=== PATIENT | male | born 1935 | race Caucasian/White ===

== ENCOUNTER 2017-07-23 10:53 | Observation (INO) ==
[2017-07-23] MEDS ORDERED: 0.9 % Sodium Chloride 1,000 ML IVC ONE (11:08)
[2017-07-23] MEDS ORDERED: *HR* Morphine 2 MG/ML SYRINGE IVP ONE (11:08)
[2017-07-23] MEDS ORDERED: Ondansetron 4 MG/2 ML VIAL IVP ONE (11:08)
--- NOTE | 2017-07-23 11:08 | Emergency Department Note ---
Disposition Clinical Impression: Comminuted right humeral fracture Disposition: Admitted As Inpatient Condition: Fair Time of Disposition: 13:33 General Adult HPI - General Chief complaint: ED Extremity Injury, Upper Stated complaint: R arm pain s/p fx-seen at [facility] ER last night Time Seen by Provider: 07/23/17 11:04 Source: patient, family Mode of arrival: ambulatory Limitations: no limitations Nursing Notes Reviewed: Yes Vital Signs Reviewed: Yes - History of Present Illness HPI Narrative: Patient presents to the ED the chief complaint of right arm pain. Patient was seen and evaluated in [place] ER yesterday after mechanical fall onto his right side. States that he was told he had a fracture of his humerus and placed in a splint and told to go home and call orthopedics on Monday. States that they did not give him anything for pain. He was unable to sleep last night and unable to find a position of comfort. States he is having some numbness and tingling in his hand and pain in his thumb. Also complaining of wrist pain and forearm pain. Denies any head injury or loss consciousness. No chest pain, shortness of breath, abdominal pain, nausea, vomiting Pain Scale: 10 - Related Data Home Medications Medication Instructions Recorded Confirmed Finasteride [Proscar] 5 mg PO DAILY 07/23/17 07/23/17 Losartan Potassium [Cozaar] 50 mg PO BID 07/23/17 07/23/17 Metoprolol [Lopressor] 50 mg PO DAILY 07/23/17 07/23/17 Nitrofurantoin [Macrodantin] 50 mg PO DAILY 07/23/17 07/23/17 Omeprazole [PriLOSEC] 40 mg PO DAILY 07/23/17 07/23/17 Allergies Allergy/AdvReac Type Severity Reaction Status Date / Time aspirin Allergy Nausea Verified 07/23/17 10:55 Review of Systems: As reviewed in the HPI. All other systems reviewed are negative or normal. Past Medical History - Past Medical History Attestation: Yes The following information was validated with the patient. Source: patient Medical history: Reports: atrial fibrillation, coronary artery disease, myocardial infarction Psychiatric history: Reports: no psych history - Social History Smoking Status: Never smoker Smokeless Tobacco Status: No Alcohol use: Reports: none Drug use: Reports: none Physical Exam CONSTITUTIONAL: [well appearing in no acute distress but does appear uncomfortable] SKIN: [Warm, dry, and intact without rash] EYES: [extraocular movements are grossly intact, clear conjunctiva] HENT: [Normocephalic, atraumatic, moist mucus membranes] NECK: [no obvious swelling, normal range of motion] PULMONARY: [normal chest rise and fall, no respiratory distress or stridor CARDIOVASCULAR: [regular rate, distal extremities are warm and well perfused] GASTROINSTESTINAL: [nondistended, non-tender] GENITOURINARY: [deferred] NEUROLOGIC: [normal speech, moves all extremities] MUSCULOSKELETAL: [Right upper extremity is in a splint, will evaluate once XR are back] PSYCHIATRIC: [normal mood and affect] Course - Reevaluation(s) Reevaluation #1: I spoke with the on-call orthopedic surgeon. He states that this is likely nonoperable, but that he was coming in the hospital today and would be able to see the patient. He does live at home alone, so we will admit him for pain control. Reevaluation #2: Patient's right arm is deformed, but no ecchymosis or open fracture. Neurovascularly intact. Reevaluation #3: Patient admitted to the hospital service. After consult with orthopedics. Patient's pain is significantly better under control now and BP has come down. Time: 13:33 Vital Signs Temperature 97.9 F 07/23/17 10:56 Pulse Rate 114 07/23/17 10:56 Respiratory Rate 20 07/23/17 10:56 Blood Pressure 248/127 07/23/17 10:56 O2 Sat by Pulse Oximetry 97 07/23/17 10:56 Temperature 97.9 F 07/23/17 11:38 Pulse Rate 114 07/23/17 11:38 Respiratory Rate 20 07/23/17 11:38 Blood Pressure 248/127 07/23/17 11:38 O2 Sat by Pulse Oximetry 97 07/23/17 11:38 Oxygen Delivery Oxygen Delivery Room Air Medical Decision Making - Lab Data Result diagrams: 07/23/17 13:01 Lab Results 07/23/17 Range/Units 13:01 WBC 10.2 (4.3-11.1) K/mcL RBC 4.15 L (4.19-5.50) M/mcL Hgb 13.0 (12.9-16.9) g/dL Hct 40.0 (37.5-50.1) % MCV 96.4 (83.0-100.0) fL MCH 31.3 (28.0-33.3) pg MCHC 32.5 (31.6-35.5) g/dL RDW 14.6 H (11.5-14.5) % Plt Count 400 (140-400) K/mcL MPV 9.8 (9.4-12.4) fL Immature Gran % 0.3 (0-4) % Seg Neutrophils % 81.1 % Lymphocytes % 9.6 % Monocytes % 8.6 % Eosinophils % 0.1 % Basophils % 0.3 % Neutrophils # 8.3 (1.6-8.9) K/mcL Lymphocytes # 1.0 (0.6-4.6) K/mcL Monocytes # 0.9 (0.0-1.3) K/mcL Eosinophils # 0.0 (0.0-0.6) K/mcL Basophils # 0.0 (0.0-0.2) K/mcL
--- NOTE | 2017-07-23 11:28 | Emergency Department Note ---
Disposition Clinical Impression: Comminuted right humeral fracture Qualifiers: Encounter type: initial encounter Humerus Location: shaft Fracture type: closed Fracture alignment: displaced Qualified Code(s): S42.351A - Displaced comminuted fracture of shaft of humerus, right arm, initial encounter for closed fracture Disposition: Admitted As Inpatient Condition: Fair General Adult HPI - General Chief complaint: ED Extremity Injury, Upper Stated complaint: R arm pain s/p fx-seen at [facility] ER last night Time Seen by Provider: 07/23/17 11:04 - History of Present Illness Pain Scale: 10 - Related Data Home Medications Medication Instructions Recorded Confirmed Finasteride [Proscar] 5 mg PO DAILY 07/23/17 07/23/17 Losartan Potassium [Cozaar] 50 mg PO BID 07/23/17 07/23/17 Metoprolol [Lopressor] 50 mg PO DAILY 07/23/17 07/23/17 Nitrofurantoin [Macrodantin] 50 mg PO DAILY 07/23/17 07/23/17 Omeprazole [PriLOSEC] 40 mg PO DAILY 07/23/17 07/23/17 Allergies Allergy/AdvReac Type Severity Reaction Status Date / Time aspirin Allergy Nausea Verified 07/23/17 10:55 Past Medical History - Past Medical History Medical history: Reports: atrial fibrillation, coronary artery disease, myocardial infarction Psychiatric history: Reports: no psych history - Social History Smoking Status: Never smoker Smokeless Tobacco Status: No Alcohol use: Reports: none Drug use: Reports: none Course Vital Signs Temperature 97.9 F 07/23/17 10:56 Pulse Rate 114 07/23/17 10:56 Respiratory Rate 20 07/23/17 10:56 Blood Pressure 248/127 07/23/17 10:56 O2 Sat by Pulse Oximetry 97 07/23/17 10:56 Temperature 97.8 F 07/23/17 19:03 Pulse Rate 87 07/23/17 19:03 Respiratory Rate 16 07/23/17 19:03 Blood Pressure 142/81 07/23/17 19:03 O2 Sat by Pulse Oximetry 94 07/23/17 19:03 Oxygen Delivery Oxygen Delivery Room Air Procedures - Orthopedic Splinting/Casting Injury #1 Side: right Upper Extremity Injury Location: upper arm Upper Extremity Immobilizer: posterior splint, sugar tong splint Additional Comments: Long-arm posterior splint with an upper arm sugar tong placed. Patient tolerated well without complication. Neurovascular intact following splint placement. Splint placed by myself and Dr. Godoy. Medical Decision Making - Lab Data Result diagrams: 07/23/17 13:01 07/23/17 13:01 Lab Results 07/23/17 07/23/17 Range/Units 13:01 13:01 WBC 10.2 (4.3-11.1) K/mcL RBC 4.15 L (4.19-5.50) M/mcL Hgb 13.0 (12.9-16.9) g/dL Hct 40.0 (37.5-50.1) % MCV 96.4 (83.0-100.0) fL MCH 31.3 (28.0-33.3) pg MCHC 32.5 (31.6-35.5) g/dL RDW 14.6 H (11.5-14.5) % Plt Count 400 (140-400) K/mcL MPV 9.8 (9.4-12.4) fL Immature Gran % 0.3 (0-4) % Seg Neutrophils % 81.1 % Lymphocytes % 9.6 % Monocytes % 8.6 % Eosinophils % 0.1 % Basophils % 0.3 % Neutrophils # 8.3 (1.6-8.9) K/mcL Lymphocytes # 1.0 (0.6-4.6) K/mcL Monocytes # 0.9 (0.0-1.3) K/mcL Eosinophils # 0.0 (0.0-0.6) K/mcL Basophils # 0.0 (0.0-0.2) K/mcL Sodium 135 L (136-145) mEq/L Potassium 3.9 (3.5-5.1) mEq/L Chloride 104 (98-107) mEq/L Carbon Dioxide 22 L (23-29) mEq/L BUN 19 (8-23) mg/dL Creatinine 1.08 (0.70-1.30) mg/dL Est GFR ( Amer) > 60 (> 60) Est GFR (Non-Af Amer) > 60 (> 60) BUN/Creatinine Ratio 18 (6-26) Glucose 132 H (70-105) mg/dL Calculated Osmolality 284 (280-300) Calcium 9.1 (8.6-10.3) mg/dL Attestation Statement - Attestation Attestation: I examined this patient and my medical decision-making was reviewed with the Resident Physician. I agree with the documented findings, disposition and treatment plan as described except to the extent set forth below. Patient to the ED with a chief complaint right arm pain. Patient had a fall yesterday and had a mid shaft humerus fracture. He was seen at an outside facility and discharged home after splinting. His pain is intolerable. On examination he has decreased range of motion from pain. Fingers pink and warm with good cap refill. Plan. X-ray reviewed that shows a comminuted displaced midshaft humerus fracture. Pain control repeat imaging. Will consult with orthopedic. Splint replaced. Patient matted for pain management and orthopedic consult.
[2017-07-23 13:25] LABS: Basophils % 0.3 %; Eosinophils % 0.1 %; Immature Granulocytes % 0.3 % (0-4); Lymphocytes % 9.6 %; Mean Corpuscular HGB Conc 32.5 g/dL (31.6-35.5); Mean Corpuscular Hemoglobin 31.3 pg (28.0-33.3); Mean Corpuscular Volume 96.4 fL (83.0-100.0); Mean Platelet Volume 9.8 fL (9.4-12.4); Monocytes # 0.9 K/mcL (0.0-1.3); Monocytes % 8.6 %; Neutrophils # 8.3 K/mcL (1.6-8.9); Platelet Count 400 K/mcL (140-400); Red Blood Count 4.15 M/mcL (4.19-5.50); Red Cell Distribution Width 14.6 % (11.5-14.5); Segmented Neutrophils % 81.1 %
[2017-07-23 13:46] LABS: BUN/Creatinine Ratio 18 (6-26); Blood Urea Nitrogen 19 mg/dL (8-23); Calcium 9.1 mg/dL (8.6-10.3); Carbon Dioxide 22 mEq/L (23-29); Chloride 104 mEq/L (98-107); Glucose 132 mg/dL (70-105); Osmolality,Calculated 284 (280-300); Potassium 3.9 mEq/L (3.5-5.1); Sodium 135 mEq/L (136-145); eGFR For African Americans > 60 (> 60); eGFR For Non-African Americans > 60 (> 60)
[2017-07-23] MEDS ORDERED: Naloxone 0.4 MG/ML INJ IVP PRN (13:49)
[2017-07-23] MEDS ORDERED: Ondansetron 4 MG/2 ML VIAL IVP PRN (13:59)
--- NOTE | 2017-07-23 14:21 | Internal Med History&Physical ---
Date of Encounter: 07/23/17 Time of Encounter: 13:01 Internal Medicine - H&P: HPI Chief complaint: right arm pain Admitted From: Home Plans for Post Hospital Care: Home History of present illness: Mr. Baptiste is a 82 year old male with PMH of HTN, BPH, CAD, ventral hernia, and obesity who presented to the ER for evaluation of right arm pain. Pt sustained a mechanical fall in the rain yesterday and went to the [facility] ER, he was noted to have a right humerus fracture, a splint was placed, and patient was discharged to home. Pt did not have anything for pain control which is what prompted his visit to the ER. Repeat imaging is consistent with prior studies. Pt's pain is currently controlled after receiving Morphine in the ER. Orthopedic surgery was consulted by the ER physician. Pt reports of living alone and is able to take care of his daily ADLs. He denies any trauma to the head. Denies any headache, chest pain, sob, abd pain, n/v, fever, or chill. Past Med Surg Social Fam HX - Past Medical History Medical history: coronary artery disease, myocardial infarction Psychiatric history: no psych history - Social History Smoking Status: Never smoker Smokeless Tobacco Status: No Alcohol use: none Drug use: none Internal Medicine - H&P: Meds Finasteride [Proscar] 5 mg PO DAILY 07/23/17 [History] Losartan Potassium [Cozaar] 50 mg PO BID 07/23/17 [History] Metoprolol [Lopressor] 50 mg PO DAILY 07/23/17 [History] Nitrofurantoin [Macrodantin] 50 mg PO DAILY 07/23/17 [History] Omeprazole [PriLOSEC] 40 mg PO DAILY 07/23/17 [History] 3 Allergy/AdvReac Type Severity Reaction Status Date / Time aspirin Allergy Nausea Verified 07/23/17 10:55 All Systems PM: A 10-system review of systems was performed and is negative for pertinent findings except as documented above in the HPI. - Constitutional Constitutional: as per HPI, falls, no chills, no excessive sweating, no fatigue , no fever(s), no lethargy, no malaise, no night sweats - Constitutional Vitals: Temp Pulse Resp BP Pulse Ox 97.9 F 82 18 178/92 92 07/23/17 11:38 07/23/17 13:46 07/23/17 13:46 07/23/17 13:46 07/23/17 13:46 General appearance: Present: A&O X 3, no acute distress, obese - Head Head exam: Present: atraumatic, normocephalic - Eye Eye exam: Present: conjuntiva pink, sclera anicteric - Respiratory Respiratory exam: Present: CTAB. Absent: respiratory distress, wheezes - Cardiovascular Cardiovascular exam: Present: RRR, +S1, +S2 - GI/Abdominal GI/Abdominal exam: Present: distended (ventral hernia ), normal bowel sounds, soft, no peritoneal signs. Absent: tenderness - Extremities Exam Extremities exam: Present: warm, radial pulses palpable and symmetrical. Absent : calf tenderness, pedal edema Additional comments: right arm in splint - Neurological Exam Neurological exam: Present: oriented X3 Internal Med - H&P Results - Labs CBC & Chem 7: 07/23/17 13:01 07/23/17 13:01 - Assessment and plan (1) Comminuted right humeral fracture Current Visit: Yes Status: Acute Assessment and plan: Humerus XRAY: Comminuted and displaced humeral diaphysis fracture, stable compared to 07/22/2017. Ortho consult requested with Dr. Lopes by the ER physician continue supportive care splint replaced by the the ER physician Qualifiers: Encounter type: initial encounter Humerus Location: shaft Fracture type: closed Fracture alignment: displaced Qualified Code(s): S42.351A - Displaced comminuted fracture of shaft of humerus, right arm, initial encounter for closed fracture (2) Hypertension Current Visit: Yes Status: Chronic Assessment and plan: Unclear if patient took is home medications prior to hospitalization will resume home meds hydralazine 10mg IV q6h prn SBP>160 Qualifiers: Hypertension type: essential hypertension Qualified Code(s): I10 - Essential (primary) hypertension (3) DVT prophylaxis Current Visit: Yes Status: Acute Assessment and plan: heparin SQ (4) Obesity (BMI 30.0-34.9) Current Visit: Yes Status: Chronic - Time Spent With Patient Total time spent is greater than 50% in coordination of care (as documented) at patient's floor/unit and/or counseling patient:
--- NOTE | 2017-07-23 14:54 | Orthopedic Consult Note ---
Date of Encounter: 07/23/17 Time of Encounter: 14:43 History of Present Illness Chief complaint: Right arm pain HPI: Mr. Baptiste is a 82 year old [id number] male who sustained a left upper extremity injury in a fall at home yesterday. The patient had pain and difficulty with the right upper extremity. He presented initially to [facility] where he had x-rays taken that revealed evidence of a fracture. He was placed into a splint and sling and was discharged home. Apparently the patient did not have any pain medications and therefore returned to the emergency room at [facility] today with these complaints. The patient was placed into a new splint and administered pain medications. He was admitted for further management and concerns for potential placement regarding his inability to perform his ADLs and basic health requirements. The patient does live alone. Past medical and surgical history as well as allergies and medications were all reviewed. Please see the completed portion the medical record. Examination reveals an obese elderly appearing gentleman in minimal distress while lying in the hospital bed. His right upper extremity is in a long splint and sling. Examination of the wrist reveals no evidence of a wrist drop or loss of finger extension. Sensation is grossly intact. Examination of x-rays reveals a comminuted proximal third to midshaft fracture of the humerus with a lateral butterfly fragment. Overall alignment is quite good. No evidence of dislocation of the glenohumeral joint. Impression: Comminuted diaphyseal fracture proximal third to mid portion left humerus Recommendation: I discussed with the patient that I would recommend continued conservative treatment. Fracture alignment is quite acceptable at this time. Would utilize the splint and sling for a short interval may be 2 weeks at which time we would recheck x-rays and potentially place him into a humeral fracture brace or even just utilize a sling. Patient understands and agrees with the care as outlined. Patient will have limited use of the right arm for probably 6 weeks or so. Thank you for allowing me to seen care for Mr. Baptiste. Sincerely, Donn Lopes,DO Past Med Surg Social Fam HX - Past Medical History Medical history: coronary artery disease, myocardial infarction Psychiatric history: no psych history - Social History Smoking Status: Never smoker Smokeless Tobacco Status: No Alcohol use: none Drug use: none Medications and Allergies Finasteride [Proscar] 5 mg PO DAILY 07/23/17 [History] Losartan Potassium [Cozaar] 50 mg PO BID 07/23/17 [History] Metoprolol [Lopressor] 50 mg PO DAILY 07/23/17 [History] Nitrofurantoin [Macrodantin] 50 mg PO DAILY 07/23/17 [History] Omeprazole [PriLOSEC] 40 mg PO DAILY 07/23/17 [History] 3 Allergy/AdvReac Type Severity Reaction Status Date / Time aspirin Allergy Nausea Verified 07/23/17 10:55 All Systems Reviewed: The remainder of the systems were reviewed and are negative Physical Exam - Constitutional Vitals: Temp Pulse Resp BP Pulse Ox 97.9 F 82 18 178/92 92 07/23/17 11:38 07/23/17 13:46 07/23/17 13:46 07/23/17 13:46 07/23/17 13:46 Results - Labs Result Diagrams: 07/23/17 13:01 07/23/17 13:01 Labs: Abnormal lab results RBC 4.15 M/mcL (4.19-5.50) L 07/23/17 13:01 RDW 14.6 % (11.5-14.5) H 07/23/17 13:01 Sodium 135 mEq/L (136-145) L 07/23/17 13:01 Carbon Dioxide 22 mEq/L (23-29) L 07/23/17 13:01 Glucose 132 mg/dL (70-105) H 07/23/17 13:01 All other labs normal. - Diagnostic results Shoulder x-ray: image reviewed (Humerus x-rays reviewed including views of the shoulder.) Consult Discharge Plan - Plan Referrals: Solis Valdez DO [Primary Care Provider] -
[2017-07-23 15:14] LABS: Prothrombin Time 10.8 Seconds (9.4-12.1)
[2017-07-23] MEDS: *HR* Heparin 5,000 UNIT/ML VIAL SQ SCH (17:01)
[2017-07-23] MEDS: *HR* HYDROcodone/Acet 5/325 mg TABLET PO PRN (17:46)
[2017-07-24] MEDS: *HR* OxyCODONE Immed Rel 5 MG TABLET PO PRN ×3 (00:01→20:29)
[2017-07-24 02:21] LABS: Basophils % 0.3 %; Eosinophils % 0.3 %; Hematocrit 37.9 % (37.5-50.1); Hemoglobin 12.5 g/dL (12.9-16.9); Immature Granulocytes % 0.1 % (0-4); Lymphocytes # 1.4 K/mcL (0.6-4.6); Lymphocytes % 19.4 %; Mean Corpuscular Hemoglobin 31.6 pg (28.0-33.3); Mean Corpuscular Volume 95.7 fL (83.0-100.0); Mean Platelet Volume 10.3 fL (9.4-12.4); Monocytes # 0.9 K/mcL (0.0-1.3); Monocytes % 12.8 %; Neutrophils # 4.8 K/mcL (1.6-8.9); Platelet Count 391 K/mcL (140-400); Red Blood Count 3.96 M/mcL (4.19-5.50); Red Cell Distribution Width 14.5 % (11.5-14.5); Segmented Neutrophils % 67.1 %
[2017-07-24 02:40] LABS: Alanine Aminotransferase 15 Units/L (7-52); Albumin 3.6 g/dL (3.5-5.7); Albumin/Globulin Ratio 1.3 (1.1-2.2); Alkaline Phosphatase 58 Units/L (34-104); Aspartate Amino Transferase 15 Units/L (13-39); BUN/Creatinine Ratio 17 (6-26); Bilirubin,Total 0.6 mg/dL (0.3-1.0); Blood Urea Nitrogen 19 mg/dL (8-23); Carbon Dioxide 24 mEq/L (23-29); Chloride 105 mEq/L (98-107); Globulin 2.8 g/dL (2.4-3.5); Glucose 137 mg/dL (70-105); Magnesium 2.1 mg/dL (1.6-2.6); Osmolality,Calculated 288 (280-300); Phosphorous 2.9 mg/dL (2.7-4.5); Potassium 4.1 mEq/L (3.5-5.1); Sodium 137 mEq/L (136-145); Total Protein 6.4 g/dL (6.4-8.9); eGFR For African Americans > 60 (> 60); eGFR For Non-African Americans > 60 (> 60)
[2017-07-24] MEDS: *HR* HYDROcodone/Acet 5/325 mg TABLET PO PRN ×3 (03:51→23:21)
[2017-07-24] MEDS: *HR* Heparin 5,000 UNIT/ML VIAL SQ SCH ×2 (05:52→17:56)
[2017-07-24] MEDS: Finasteride 5 MG TABLET PO SCH (09:10)
--- NOTE | 2017-07-24 12:08 | Internal Med Progress Note ---
Date of Encounter: 07/24/17 Time of Encounter: 12:02 - Assessment and plan (1) Comminuted right humeral fracture Current Visit: Yes Status: Acute Assessment and plan: After fall at home on 07/22/2017. Initially presented to [facility]; right upper external x-ray showed acute fracture at that time. He was placed into a splint/sling and discharged home. He did not have any pain medications therefore was admitted to [facility] ED on with complaints of right upper extremity pain. Right upper extremity x- ray shows commuted and displaced humeral diaphysis fracture, stable compared to 07/22/17 x-ray. Evaluated by Ortho who recommended continuing conservative treatment with splint and sling for 2 weeks then repeat x-ray. Lives alone, will need PT/OT consult as he will likely benefit from SNF. Continue judicious pain control. Qualifiers: Encounter type: initial encounter Humerus Location: shaft Fracture type: closed Fracture alignment: displaced Qualified Code(s): S42.351A - Displaced comminuted fracture of shaft of humerus, right arm, initial encounter for closed fracture (2) Hypertension Current Visit: Yes Status: Chronic Assessment and plan: per hx. BP elevated on arrival; likely secondary to not having home BP medication and acute pain. BP remains variable but overall acceptable. Continue home BP medication. Monitor BP and titrate PRN Qualifiers: Hypertension type: essential hypertension Qualified Code(s): I10 - Essential (primary) hypertension (3) Obesity (BMI 30.0-34.9) Current Visit: Yes Status: Chronic Assessment and plan: BMI 30 (4) Chronic UTI (urinary tract infection) Current Visit: Yes Status: Acute Assessment and plan: per hx. Cont home macrodantin (5) DVT prophylaxis Current Visit: Yes Status: Acute Assessment and plan: heparin - Time Spent With Patient Total time spent is greater than 50% in coordination of care (as documented) at patient's floor/unit and/or counseling patient: - Subjective Interval history: Seen and cemented at bedside. Patient is new to me, information obtained from chart review and patient report. He is complaining of right upper extremity pain; currently rates 8 out of 10. Describes pain as throbbing. Pain medicine helps relieve pain at times and activity/mobility worsens pain. Says he lives at home alone and thinks he will need to go to SNF for short amount of time. He is agreeable to PT/OT consult - Constitutional Vitals: Temp Pulse Resp BP Pulse Ox 98.5 F 95 16 155/82 96 07/24/17 06:40 07/24/17 06:40 07/24/17 06:40 07/24/17 06:40 07/24/17 06:40 General appearance: Present: A&O X 3, no acute distress, obese - Head Head exam: Present: atraumatic, normocephalic - Eye Eye exam: Present: PERRL, conjuntiva pink, sclera anicteric Pupils: Present: PERRL - Neck Neck exam general surgery: Present: supple, trachea midline. Absent: lymphadenopathy - Respiratory Respiratory exam: Present: CTAB. Absent: accessory muscle use, rales, rhonchi, wheezes - Cardiovascular Cardiovascular exam: Present: RRR, +S1, +S2. Absent: diastolic murmur, gallop, rubs, systolic murmur - GI/Abdominal GI/Abdominal exam: Present: normal bowel sounds, soft, no peritoneal signs. Absent: distended, tenderness - Extremities Exam Extremities exam: Present: warm, radial pulses palpable and symmetrical. Absent : calf tenderness, cyanotic, pedal edema Additional comments: right upper extremity with bulky sleeping/brace. Nonpitting edema to right hand. No numbness or tingling. - Neurological Exam Neurological exam: Present: CN II-XII intact, oriented X3, no focal deficits. Absent: pronater drift, facial droop, speech deficit - Skin Skin exam: Present: dry, intact Internal Medicine: Result - Labs CBC & Chem 7: 07/24/17 01:31 07/24/17 01:31 Labs: Short CBC 07/24/17 Range/Units 01:31 WBC 7.1 (4.3-11.1) K/mcL Hgb 12.5 L (12.9-16.9) g/dL Hct 37.9 (37.5-50.1) % Plt Count 391 (140-400) K/mcL Neutrophils # 4.8 (1.6-8.9) K/mcL BMP 07/24/17 01:31 Sodium 137 Potassium 4.1 Chloride 105 Carbon Dioxide 24 BUN 19 Creatinine 1.14 Glucose 137 H Calcium 9.0 Liver Function 07/24/17 Range/Units 01:31 Total Bilirubin 0.6 (0.3-1.0) mg/dL AST 15 (13-39) Units/L ALT 15 (7-52) Units/L Alkaline Phosphatase 58 (34-104) Units/L Albumin 3.6 (3.5-5.7) g/dL - ABG Interpretation ABG results: PT/INR, D-dimer PT 10.8 Seconds (9.4-12.1) 07/23/17 14:53 Consult Discharge Plan - Plan Referrals: Solis Valdez DO [Primary Care Provider] -
[2017-07-24] MEDS ORDERED: *HR* FentaNYL (PF) 100 MCG/2 ML VIAL IVP ONE (14:44)
--- NOTE | 2017-07-24 20:42 | Orthopedics Progress Note ---
Date of Encounter: 07/24/17 Time of Encounter: 20:39 Subjective Principal diagnosis: Right humerus fracture Interval history: 07/24/2017. Patient is having anticipated pain. He is also complaining of some numbness in the hand. He describes numbness in the entire hand. Examination reveals the splint to be intact though this is somewhat tight with the Rashad wraps. He does have diminished sensory findings in the ulnar nerve distribution. I loosened up his splint and readjusted his elevation. Discussed with the patient that he is going to have pain initially that should improve after several days. As noted we will plan to changing him from the splint to either a fracture brace or simply sling and swath in time. Currently however he is much more comfortable though still in pain, with the splint as applied. Agree with need for short-term rehabilitation stay as he is unable to take care of himself. Objective Vital signs: Vital Signs Temp Pulse Resp BP Pulse Ox 07/24/17 19:53 98.7 F 97 18 132/82 93 07/24/17 15:48 98.3 F 82 16 150/78 93 07/24/17 15:13 98.5 F 87 16 185/96 96 07/24/17 12:00 98.1 F 90 16 141/73 97 07/24/17 06:40 98.5 F 95 16 155/82 96 07/24/17 04:14 98.0 F 102 16 184/113 96 07/23/17 23:36 98.4 F 64 16 118/72 94 Intake and Output 07/24/17 07/24/17 07/24/17 07:59 15:59 23:59 Intake Total 100 / 100 810 / 810 Output Total 550 / 550 350 / 350 150 / 150 Balance -550 / -550 -250 / -250 660 / 660 Intake: Oral 100 / 100 810 / 810 Output: Urine 550 / 550 350 / 350 150 / 150 Other: Meal Lunch Dinner Percent of Meal Consumed 75% 80% # Voids 1 - Labs CBC & BMP: 07/24/17 01:31 07/24/17 01:31 Labs: Abnormal lab results RBC 3.96 M/mcL (4.19-5.50) L 07/24/17 01:31 Hgb 12.5 g/dL (12.9-16.9) L 07/24/17 01:31 Glucose 137 mg/dL (70-105) H 07/24/17 01:31 Consult Discharge Plan - Plan Referrals: Solis Valdez DO [Primary Care Provider] -
[2017-07-25] MEDS: *HR* OxyCODONE Immed Rel 5 MG TABLET PO PRN ×4 (01:59→20:32)
[2017-07-25] MEDS ORDERED: *HR* FentaNYL (PF) 100 MCG/2 ML VIAL IVP STA (04:24)
[2017-07-25] MEDS: *HR* Heparin 5,000 UNIT/ML VIAL SQ SCH ×2 (06:42→18:23)
[2017-07-25] MEDS: Finasteride 5 MG TABLET PO SCH (09:50)
[2017-07-25] MEDS: *HR* HYDROcodone/Acet 5/325 mg TABLET PO PRN (18:24)
--- NOTE | 2017-07-25 18:41 | Orthopedics Progress Note ---
Date of Encounter: 07/25/17 Time of Encounter: 18:39 Subjective Principal diagnosis: Right humerus fracture Interval history: 07/24/2017. Patient is having anticipated pain. He is also complaining of some numbness in the hand. He describes numbness in the entire hand. Examination reveals the splint to be intact though this is somewhat tight with the Rashad wraps. He does have diminished sensory findings in the ulnar nerve distribution. I loosened up his splint and readjusted his elevation. Discussed with the patient that he is going to have pain initially that should improve after several days. As noted we will plan to changing him from the splint to either a fracture brace or simply sling and swath in time. Currently however he is much more comfortable though still in pain, with the splint as applied. Agree with need for short-term rehabilitation stay as he is unable to take care of himself. 07/25/2017. Patient is doing much better today. Pain is much better controlled. Denies any numbness in the hand or fingers. Examination reveals the splint to be appropriately aligned. There is no excessive tightness. Neurosensory exam of the hand is unremarkable. Impression: Comminuted midshaft fracture right humerus Recommendation: I discussed again at length with the patient denied recommend continued conservative management. At this time there is no indication to proceed with surgery. Surgery would involve a massive incision and dissection in light of the extent of the fracture and its location. Patient's daughter apparently had some concerns about the patient not being treated operatively, the patient gave me permission to talk with her however, phone was busy. We will try again and discussed the treatment management at length with the patient 's daughter with the patient's permission. Objective Vital signs: Vital Signs Temp Pulse Resp BP Pulse Ox 07/25/17 16:24 98.4 F 91 16 136/78 96 07/25/17 11:03 98.5 F 108 18 138/85 96 07/25/17 06:36 98.2 F 99 16 143/83 93 07/25/17 04:52 98.4 F 98 16 138/76 93 07/24/17 23:11 99.5 F 100 18 149/88 93 07/24/17 19:53 98.7 F 97 18 132/82 93 Intake and Output 07/25/17 07/25/17 07/25/17 07:59 15:59 23:59 Intake Total 0 / 0 240 / 240 480 / 480 Output Total 550 / 550 Balance -550 / -550 240 / 240 480 / 480 Intake: Oral 0 / 0 240 / 240 480 / 480 Output: Urine 550 / 550 Other: Meal Dinner Percent of Meal Consumed 50% # Voids 1 2 # Urine Diapers 1 - Labs CBC & BMP: 07/24/17 01:31 07/24/17 01:31 Labs: Abnormal lab results RBC 3.96 M/mcL (4.19-5.50) L 07/24/17 01:31 Hgb 12.5 g/dL (12.9-16.9) L 07/24/17 01:31 Glucose 137 mg/dL (70-105) H 07/24/17 01:31 Consult Discharge Plan - Plan Referrals: Solis Valdez DO [Primary Care Provider] -
[2017-07-26] MEDS: *HR* OxyCODONE Immed Rel 5 MG TABLET PO PRN ×2 (02:39→06:14)
[2017-07-26] MEDS: *HR* Heparin 5,000 UNIT/ML VIAL SQ SCH ×2 (06:14→17:47)
[2017-07-26] MEDS: *HR* HYDROcodone/Acet 5/325 mg TABLET PO PRN ×2 (08:29→20:48)
[2017-07-26] MEDS: Finasteride 5 MG TABLET PO SCH (08:30)
--- NOTE | 2017-07-26 21:04 | Orthopedics Progress Note ---
Date of Encounter: 07/26/17 Time of Encounter: 21:00 Subjective Principal diagnosis: Right humerus fracture Interval history: 07/24/2017. Patient is having anticipated pain. He is also complaining of some numbness in the hand. He describes numbness in the entire hand. Examination reveals the splint to be intact though this is somewhat tight with the Rashad wraps. He does have diminished sensory findings in the ulnar nerve distribution. I loosened up his splint and readjusted his elevation. Discussed with the patient that he is going to have pain initially that should improve after several days. As noted we will plan to changing him from the splint to either a fracture brace or simply sling and swath in time. Currently however he is much more comfortable though still in pain, with the splint as applied. Agree with need for short-term rehabilitation stay as he is unable to take care of himself. 07/25/2017. Patient is doing much better today. Pain is much better controlled. Denies any numbness in the hand or fingers. Examination reveals the splint to be appropriately aligned. There is no excessive tightness. Neurosensory exam of the hand is unremarkable. Impression: Comminuted midshaft fracture right humerus Recommendation: I discussed again at length with the patient denied recommend continued conservative management. At this time there is no indication to proceed with surgery. Surgery would involve a massive incision and dissection in light of the extent of the fracture and its location. Patient's daughter apparently had some concerns about the patient not being treated operatively, the patient gave me permission to talk with her however, phone was busy. We will try again and discussed the treatment management at length with the patient 's daughter with the patient's permission. 07/26/2017. Patient continues to improve on a daily basis. Pain has eased up considerably especially with the use of ice on his clavicle and shoulder area. Examination is unchanged. Neurosensory exam of the hand is intact. Impression: Comminuted midshaft fracture right humerus Recommendation: Continue with conservative measures. We will need see the patient in follow-up in about 10 days or 2 weeks time. If the pain is well- controlled at that time and x-rays show stable fracture will probably convert from the splint to a sling. Status is stable for discharge at any time. Will see patient as needed while he remains hospitalized. Objective Vital signs: Vital Signs Temp Pulse Resp BP Pulse Ox 07/26/17 19:49 100.4 F H 111 14 180/88 97 07/26/17 16:37 98.8 F 75 15 166/84 93 07/26/17 12:02 98.6 F 83 16 133/74 96 07/26/17 07:30 94 07/26/17 03:54 99.2 F 87 18 153/93 94 07/25/17 23:38 99.5 F 95 18 124/77 93 Intake and Output 07/26/17 07/26/17 07/26/17 07:59 15:59 23:59 Intake Total 0 / 0 240 / 240 Output Total 400 / 400 0 / 0 Balance -400 / -400 240 / 240 Intake: Oral 0 / 0 240 / 240 Output: Urine 400 / 400 0 / 0 - Labs CBC & BMP: 07/24/17 01:31 07/24/17 01:31 Labs: Abnormal lab results RBC 3.96 M/mcL (4.19-5.50) L 07/24/17 01:31 Hgb 12.5 g/dL (12.9-16.9) L 07/24/17 01:31 Glucose 137 mg/dL (70-105) H 07/24/17 01:31 Consult Discharge Plan - Plan Referrals: Solis Valdez DO [Primary Care Provider] -
--- NOTE | 2017-07-27 | Internal Med Progress Note ---
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 - Time Spent With Patient Total time spent is greater than 50% in coordination of care (as documented) at patient's floor/unit and/or counseling patient: 25 - 35 minutes - Constitutional Vitals: Temp Pulse Resp BP Pulse Ox 100.4 F H 111 14 180/88 97 07/26/17 19:49 07/26/17 19:49 07/26/17 19:49 07/26/17 19:49 07/26/17 19:49 General appearance: Present: A&O X 3, no acute distress, obese Internal Medicine: Result - Labs CBC & Chem 7: 07/24/17 01:31 07/24/17 01:31 - ABG Interpretation ABG results: PT/INR, D-dimer PT 10.8 Seconds (9.4-12.1) 07/23/17 14:53 Consult Discharge Plan - Plan Referrals: Donn Lopes DO [Non-Partnered Physician] - (Notification sent to community service patrol officer for appt to be made on next day.) Solis Valdez DO [Primary Care Provider] - Prescriptions: HYDROcodone/Acet 5/325 mg [[place] 5-325 mg] 1 tab PO Q6HR PRN 4 Days #12 tablet PRN Reason: Mild To Moderate Pain
[2017-07-27] MEDS: *HR* OxyCODONE Immed Rel 5 MG TABLET PO PRN ×2 (00:36→21:17)
[2017-07-27] MEDS: *HR* Heparin 5,000 UNIT/ML VIAL SQ SCH ×2 (06:27→17:19)
[2017-07-27] MEDS: Finasteride 5 MG TABLET PO SCH (09:17)
--- NOTE | 2017-07-27 21:40 | Internal Med Progress Note ---
Date of Encounter: 07/27/17 Time of Encounter: 19:00 - Assessment and plan (1) Comminuted right humeral fracture Status: Acute Qualifiers: Encounter type: initial encounter Humerus Location: shaft Fracture type: closed Fracture alignment: displaced Qualified Code(s): S42.351A - Displaced comminuted fracture of shaft of humerus, right arm, initial encounter for closed fracture (2) Hypertension Status: Chronic Qualifiers: Hypertension type: essential hypertension Qualified Code(s): I10 - Essential (primary) hypertension (3) Chronic UTI (urinary tract infection) Status: Chronic - Time Spent With Patient Total time spent is greater than 50% in coordination of care (as documented) at patient's floor/unit and/or counseling patient: 25 - 35 minutes - Constitutional Vitals: Temp Pulse Resp BP Pulse Ox 98.9 F 105 18 145/84 93 07/27/17 18:43 07/27/17 18:43 07/27/17 18:43 07/27/17 18:43 07/27/17 21:00 General appearance: Present: A&O X 3, no acute distress, obese Internal Medicine: Result - Labs CBC & Chem 7: 07/24/17 01:31 07/24/17 01:31 - ABG Interpretation ABG results: PT/INR, D-dimer PT 10.8 Seconds (9.4-12.1) 07/23/17 14:53 Consult Discharge Plan - Plan Referrals: Donn Lopes DO [Non-Partnered Physician] - (Notification sent to spray unit feeder for appt to be made on next day.) Solis Valdez DO [Primary Care Provider] - Prescriptions: HYDROcodone/Acet 5/325 mg [[place] 5-325 mg] 1 tab PO Q6HR PRN 4 Days #12 tablet PRN Reason: Mild To Moderate Pain
[2017-07-28] MEDS: *HR* HYDROcodone/Acet 5/325 mg TABLET PO PRN (00:15)
[2017-07-28] MEDS: *HR* Heparin 5,000 UNIT/ML VIAL SQ SCH (04:11)
[2017-07-28] MEDS: *HR* OxyCODONE Immed Rel 5 MG TABLET PO PRN ×4 (04:11→20:04)
[2017-07-28] MEDS: Finasteride 5 MG TABLET PO SCH (08:31)
[2017-07-28] MEDS ORDERED: MOM Conc 10 ML UD.LIQ PO PRN (13:05)
[2017-07-28 16:57] VITALS: BP 118/67
--- NOTE | 2017-07-28 17:43 | Discharge Summary ---
- NOTES TO OUTPATIENT PROVIDER Notes to Outpatient Provider: NEEDS REHAB AFTER SUSTAINING R HUMERUS FX. Orders not resulted at time of discharge: Pending orders 07/29/17 04:00 Basic Metabolic Panel AM 0400 CBC [Complete Blood Count] [HEME] AM 0400 Date of Encounter: 07/28/17 Time of Encounter: 17:40 - Discharge Diagnosis (1) Comminuted right humeral fracture Status: Acute Qualifiers: Encounter type: initial encounter Humerus Location: shaft Fracture type: closed Fracture alignment: displaced Qualified Code(s): S42.351A - Displaced comminuted fracture of shaft of humerus, right arm, initial encounter for closed fracture (2) Hypertension Status: Chronic Qualifiers: Hypertension type: essential hypertension Qualified Code(s): I10 - Essential (primary) hypertension (3) Chronic UTI (urinary tract infection) Status: Acute (4) Obesity (BMI 30.0-34.9) Status: Chronic Hospital course: Mr. Baptiste is a 82 year old male -- ADDENDUM IS TO FOLLOW Discharge discussed with: patient, nurse, case management - Time Spent with Patient Total time spent providing and/or coordinating discharge services: Greater than 30 minutes - Discharge Medications Prescriptions: HYDROcodone/Acet 5/325 mg [[place] 5-325 mg] 1 tab PO Q6HR PRN 4 Days #12 tablet PRN Reason: Mild To Moderate Pain Home Medications: Finasteride [Proscar] 5 mg PO DAILY 07/23/17 [History] Losartan Potassium [Cozaar] 50 mg PO BID 07/23/17 [History] Metoprolol [Lopressor] 50 mg PO DAILY 07/23/17 [History] Nitrofurantoin [Macrodantin] 50 mg PO DAILY 07/23/17 [History] Omeprazole [PriLOSEC] 40 mg PO DAILY 07/23/17 [History] HYDROcodone/Acet 5/325 mg [[place] 5-325 mg] 1 tab PO Q6HR PRN 4 Days #12 tablet 07/28/17 [Rx] Allergies/Adverse Reactions: 3 Allergy/AdvReac Type Severity Reaction Status Date / Time aspirin Allergy Nausea Verified 07/23/17 10:55 Date of admission: 07/23/17 13:07 Primary care physician: Solis Valdez Consults: 07/23/17 14:52 Consult to Pastoral Services [CONS] Routine Comment: 07/24/17 11:55 Consult to Physical Therapy [CONS] Routine Comment: Evaluate, develop and implement POC Reason for Consult: Right arm fracture; will likely need SNF Does patient have active BEDREST order?: No Is patient medically & hemodynamically stable?: Yes OT [Consult to Occupational Therapy] [CONS] Routine Comment: Evaluate, develop and implement POC Reason for Consult: Right arm fracture; will likely need SNF Does patient have active BEDREST order?: No Is patient medically & hemodynamically stable?: Yes Discharging clinician: Kip Rinaldi Anticipated date of discharge: 07/28/17 - Constitutional Vitals: Temp Pulse Resp BP Pulse Ox 98.7 F 98 18 118/67 95 07/28/17 15:23 07/28/17 15:23 07/28/17 15:23 07/28/17 15:23 07/28/17 15:23 General appearance: Present: A&O X 3, obese - Respiratory Respiratory exam: Present: CTAB. Absent: rales, rhonchi, wheezes - Cardiovascular Cardiovascular exam: Present: RRR, +S1, +S2. Absent: diastolic murmur, gallop, rubs, systolic murmur - GI/Abdominal GI/Abdominal exam: Present: normal bowel sounds, soft. Absent: distended, tenderness - Patient Status Disposition: Transfer SNF Condition: Fair Functional capacity at discharge: uses cane/walker Overall status at discharge: patient is not back to baseline - Discharge Instructions Follow Up With: Solis Valdez DO [Primary Care Provider] - - VTE Deep Vein Thrombosis/Pulmonary Embolism Present on Admission: No
--- NOTE | 2017-07-28 18:18 | Physician Discharge Referral ---
ExtendedCare Referral Info Transfer To: SNF Provider in Charge: Jonathan ROQUE Provider in Charge after Transfer: Other - Diagnosis (1) Comminuted right humeral fracture Status: Acute (2) Hypertension Status: Chronic (3) Chronic UTI (urinary tract infection) Status: Acute (4) Obesity (BMI 30.0-34.9) Status: Chronic - Transfer Medications Prescriptions: HYDROcodone/Acet 5/325 mg [[place] 5-325 mg] 1 tab PO Q6HR PRN 4 Days #12 tablet PRN Reason: Mild To Moderate Pain Home Medications: Finasteride [Proscar] 5 mg PO DAILY 07/23/17 [History] Losartan Potassium [Cozaar] 50 mg PO BID 07/23/17 [History] Metoprolol [Lopressor] 50 mg PO DAILY 07/23/17 [History] Nitrofurantoin [Macrodantin] 50 mg PO DAILY 07/23/17 [History] Omeprazole [PriLOSEC] 40 mg PO DAILY 07/23/17 [History] HYDROcodone/Acet 5/325 mg [[place] 5-325 mg] 1 tab PO Q6HR PRN 4 Days #12 tablet 07/28/17 [Rx] Allergies/Adverse Reactions: 3 Allergy/AdvReac Type Severity Reaction Status Date / Time aspirin Allergy Nausea Verified 07/23/17 10:55 - Respiratory Orders Smoking Cessation: Smoking cessation has been advised. For more information, call the [place] Tobacco Quit Line at 3-660-MSGT-NOW. - Ancillary Orders May use pressure relief devices daily prn - Mobility Orders Other - Rehabiliation Orders Rehab Potential: Good Rehab Orders: Evaluation for Physical Therapy, Evaluation for Occupational Therapy - Diet Orders Regular CERTIFICATION: I certify that the transfer of the above named patient to an Extended Care Facility is necessary for the continuing treatment of the diagnosis listed. The above information is true and accurate reflection of patient's current condition. Confidential - Redisclosure prohibited without a patient's written consent.
== END 2017-07-28 20:41 ==
LOC: EMEROO 10:53 → 3NENU 10:53 → SUATTDRO 13:07 → 3NENU 14:10
PROVIDERS: ADMIT Internal Medicine; ATTEND Internal Medicine

== ENCOUNTER 2018-03-08 18:32 | Inpatient (IN) ==
[2018-03-08] MEDS ORDERED: Naloxone 0.4 MG/ML INJ IVP PRN (21:26)
--- NOTE | 2018-03-08 22:39 | Internal Med History&Physical ---
Date of Encounter: 03/09/18 Time of Encounter: 22:30 Internal Medicine - H&P: HPI Chief complaint: AMS History of present illness: Mr. Baptiste is a 82 year old male with a past medical history of hypertension, coronary artery disease, history of IA, atrial fibrillation, colon cancer, arthritis and chronic UTI who presents from [facility] due to altered mental status. Patient is a poor historian and no family members at bedside so much of the history was obtained from records at [facility]. Per reports, patient initially presented to [facility] due to altered mental status and complaints of abdominal pain. Patient does seem to complain of lower abdominal pain during my assessment, which he states has been going on for the past 2 weeks. He describes the pain as "stomach pain". Pain is nonradiating, 8 out of 10 in intensity and comes and goes. No association with food. Currently denies any pain. Denies any nausea or vomiting or diarrhea. Reports chills but no fevers. Also endorses pain with urination and increased frequency. Patient denies any chest pain or shortness of breath. History provided by the sister stated that over the last couple of days his condition has "deteriorated", noting increased sleepiness and less responsive. Patient has been incontinent of urine and has a history of frequent UTIs. Initial vital showed patient to be afebrile, tachycardic in the 120s and hypertensive. Labs are notable for leukocytosis at 13.1, hyponatremia 123 and acute kidney injury. Analysis showed moderate leukocyte esterase with negative nitrites in addition to many urine bacteria. Patient reportedly received 2 L of fluid bolus at [facility] prior to transfer. Was given 1 dose of ceftriaxone. Admitted here for possible urosepsis. Past Med Surg Social Fam HX - Past Medical History Medical history: arthritis, atrial fibrillation, cancer, coronary artery disease, hypertension, myocardial infarction Additional medical history: Neuropathy, carotid stenosis, BPH, colon cancer, skin cancer, Psychiatric history: no psych history - Past Surgical History Surgical History: other Additional surgical history: left eye removal. detatched retina sx. skin ca removal. stent x2 - Social History Smoking Status: Former smoker Smokeless Tobacco Status: No Alcohol use: none, occasionally Drug use: none - Family History Daughter Family Member Ethnicity: Non- Living Status: Still Living Hx Family Cardiac Disorders: Yes Hx Family Respiratory Disorders: No Hx Family Cancer: Yes Hx Family GI Disorders: Yes Hx Family Endocrine Disorder: No Hx Family Neuromuscular Disorders: No Hx Family Neurologic Disorders: No Hx Family HEENT Disorders: No Hx Family Autoimmune Disorders: No Internal Medicine - H&P: Meds Finasteride [Proscar] 5 mg PO DAILY 07/23/17 [History] Losartan Potassium [Cozaar] 50 mg PO BID 07/23/17 [History] Metoprolol [Lopressor] 50 mg PO DAILY 07/23/17 [History] Nitrofurantoin [Macrodantin] 50 mg PO DAILY 07/23/17 [History] Omeprazole [PriLOSEC] 40 mg PO DAILY 07/23/17 [History] HYDROcodone/Acet 5/325 mg [[place] 5-325 mg] 1 tab PO Q6HR PRN 4 Days #12 tablet 07/28/17 [Rx] HYDROcodone/Acet 5/325 mg [[place] 5-325 mg] 1 tab PO Q4H PRN 2 Days #12 tab 10/18/17 [Rx] Allergy/AdvReac Type Severity Reaction Status Date / Time aspirin Allergy Nausea Verified 07/23/17 10:55 All Systems PM: A 10-system review of systems was performed and is negative for pertinent findings except as documented above in the HPI. - Constitutional Constitutional: no chills, no fever(s), no night sweats - EENT Eyes: no change in vision, no discharge, no pain, no photophobia Ears: no ear discharge, no ear pain, no tinnitus Nose, mouth and throat: no dysphagia, no nasal discharge, no neck pain, no sore throat - Cardiovascular Cardiovascular ROS IM: no chest pain, no diaphoresis, no dyspnea, no lightheadedness, no palpitations, no syncope - Respiratory Respiratory: no cough, no dyspnea, no wheezing, no excessive phlegm production - Gastrointestinal Gastrointestinal: no abdominal pain, no diarrhea, no hematemesis, no hematochezia, no melena, no nausea, no vomiting - Musculoskeletal Musculoskeletal ROS IM: no numbness, no tingling - Integumentary Integumentary IM: no rash, no unusual bruising - Neurological Neurological ROS: no confusion, no convulsions, no focal weakness, no numbness, no tingling, no tremor(s) - Hematologic/Lymphatic Hematologic/Lymphatic: no easy bruising - Constitutional Vitals: Temp Pulse Resp BP 97.9 F 110 15 122/74 03/08/18 21:04 03/08/18 21:04 03/08/18 21:04 03/08/18 21:04 Exam: General: Alert and oriented 3 lying in bed in no acute distress Skin:Normal color, no rash, no lesions. HEENT:EOM, pupils equal, round and reactive. Cardiovascular:Normal S1 & S2, no rubs, murmurs or gallops. No JVD. Pulse regular. Lungs:Normal breath sounds, no wheezes or crackles. Abdomen:Soft, mildly distended, non-tender, no rigidity or guarding, positive bowel sounds. Extremities:No deformity, no edema or tenderness, no joint swelling or clubbing. Neurological:Normal cognition and motor skills. Pulses:Carotid and radial pulses normal +2. Rest of the physical exam is non contributory Internal Med - H&P Results - Labs CBC & Chem 7: 03/08/18 22:26 03/08/18 22:27 - Assessment and plan (1) Altered mental status Current Visit: No Status: Acute Assessment and plan: Altered mental status likely secondary to UTI. Patient currently alert oriented 3 though is unable to provide consistent history. -c/w treatment for UTI Qualifiers: Altered mental status type: unspecified Qualified Code(s): R41.82 - Altered mental status, unspecified (2) Urinary tract infection Current Visit: No Status: Acute Assessment and plan: History of recurrent UTIs. UA performed at [facility] showed moderate leukocyte esterase with negative nitrites. -Follow-up urine and blood cultures - Continue ceftriaxone. Qualifiers: Qualified Code(s): N39.0 - Urinary tract infection, site not specified; R31.9 - Hematuria, unspecified (3) Sepsis Current Visit: No Status: Acute Assessment and plan: Patient presents with tachycardia and leukocytosis of 13.1 in the setting of suspected UTI. Currently hemodynamically stable. -Continue supportive fluids -Continue with antibiotics -Follow-up blood and urine cultures. Qualifiers: Sepsis type: sepsis due to unspecified organism Qualified Code(s): A41.9 - Sepsis, unspecified organism (4) MARY (acute kidney injury) Current Visit: No Status: Resolved Assessment and plan: Patient appears to have acute kidney injury with a creatinine of 2.38. Baseline appears to be near 1.2. We will continue fluids and monitor kidney function. (5) DVT prophylaxis Current Visit: No Status: Acute Assessment and plan: Subcutaneous heparin - Time Spent With Patient Total time spent is greater than 50% in coordination of care (as documented) at patient's floor/unit and/or counseling patient:
[2018-03-09 00:32] LABS: Albumin 3.5 g/dL (3.5-5.7); Albumin/Globulin Ratio 0.9 (1.1-2.2); Bilirubin,Total 0.4 mg/dL (0.3-1.0); Calcium 9.1 mg/dL (8.6-10.3); Globulin 3.8 g/dL (2.4-3.5); Magnesium 2.6 mg/dL (1.6-2.6); Potassium 4.3 mEq/L (3.5-5.1); Total Protein 7.3 g/dL (6.4-8.9)
[2018-03-09 00:35] LABS: Prothrombin Time 11.5 Seconds (9.4-12.1)
[2018-03-09 00:37] LABS: Activated Partial Thrombo Time 35.6 Seconds (26.0-36.0)
[2018-03-09 00:41] LABS: Basophils % 0.4 %; Eosinophils # 0.1 K/mcL (0.0-0.6); Eosinophils % 0.7 %; Hematocrit 41.7 % (37.5-50.1); Hemoglobin 13.5 g/dL (12.9-16.9); Immature Granulocytes % 1.1 % (0-4); Lymphocytes # 1.4 K/mcL (0.6-4.6); Lymphocytes % 13.7 %; Mean Corpuscular HGB Conc 32.4 g/dL (31.6-35.5); Mean Corpuscular Hemoglobin 27.4 pg (28.0-33.3); Mean Corpuscular Volume 84.6 fL (83.0-100.0); Mean Platelet Volume 9.1 fL (9.4-12.4); Monocytes % 10.1 %; Neutrophils # 7.6 K/mcL (1.6-8.9); Platelet Count 587 K/mcL (140-400); Red Blood Count 4.93 M/mcL (4.19-5.50); Red Cell Distribution Width 17.4 % (11.5-14.5)
[2018-03-09] MEDS: 0.9 % Sodium Chloride 1,000 ML IVC SCH ×2 (01:42→16:14)
[2018-03-09] MEDS: *HR* Heparin 5,000 UNIT/ML VIAL SQ SCH ×4 (01:43→21:55)
[2018-03-09] MEDS ORDERED: CefTRIAXone 2,000 MG VIAL ONE (08:22)
[2018-03-09] MEDS ORDERED: 0.9 % Sodium Chloride Mini Bag 100 ML ONE (08:22)
[2018-03-09] MEDS ORDERED: CefTRIAXone 1,000 MG VIAL ONE (09:09)
[2018-03-09] MEDS: cefTRIAXone 1,000 MG in 0.9 % Sodium Chloride Mini Bag 100 ML IVPB SCH (09:17)
--- NOTE | 2018-03-09 14:27 | Internal Med Progress Note ---
Hospitalist Progress Note - Encounter Date of Encounter: 03/09/18 Time of Encounter: 11:05 - Subjective Interval History: Patient clinically improving. Denies any new fevers or chills at this point. He feels that the fluids that he got before his transfer to [facility] really helped him. - Exam Vitals: Temp Pulse Resp BP Pulse Ox 97.5 F L 87 15 130/84 93 03/09/18 12:52 03/09/18 12:52 03/09/18 12:52 03/09/18 12:52 03/09/18 12:52 Exam: GENERAL: Alert, no distress, cooperative EYES: PERRLA, EOMI EARS: External ears normal, canals clear OROPHARYNX: Lips, mucosa, and tongue normal. Teeth and gums normal. Oropharynx normal. NECK: No jugulovenous distention, No carotid bruits, Carotid pulse normal contour, Supple LUNGS: Lungs clear to auscultation, Good diaphragmatic excursion CARDIAC: Normal S1 and S2; no rubs, murmurs, or gallops ABDOMEN: Abdomen soft, non-tender, BS normal, No masses or organomegaly EXTREMITIES: Extremities normal, no deformities, edema, clubbing or skin discoloration. Good capillary refill., No ulcers NEURO: Gait normal. Reflexes normal and symmetric. Sensation grossly intact, Cranial nerves II-XII intact PULSES: 2+ radial, 2+ carotid Rest of the exam is non contributory - Assessment and Plan (1) DVT prophylaxis Current Visit: No Status: Acute Assessment and Plan: Subcutaneous heparin (2) MARY (acute kidney injury) Current Visit: No Status: Resolved Assessment and Plan: Patient appears to have acute kidney injury with a creatinine of 2.38. Baseline appears to be near 1.2. We will continue fluids and monitor kidney function. 1/4-acute renal failure is slowly improving. Creatinine better to 1.88. 1.2 seems to be his baseline. Continue hydration and check BMP tomorrow (3) Altered mental status Current Visit: No Status: Acute Assessment and Plan: Altered mental status likely secondary to UTI. Patient currently alert oriented 3 though is unable to provide consistent history. -c/w treatment for UTI 1/4-metabolic encephalopathy most likely due to urinary tract infection. Gradually improving. Urine cultures are sent and pending. Continue on Rocephin for now. (4) Urinary tract infection Current Visit: No Status: Acute Assessment and Plan: History of recurrent UTIs. UA performed at [place] showed moderate leukocyte esterase with negative nitrites. -Follow-up urine and blood cultures - Continue ceftriaxone. 03/09-continue Rocephin for now. Await cultures. In the past patient has grown Escherichia coli/Morganella/Proteus. (5) Sepsis Current Visit: No Status: Acute Assessment and Plan: Patient presents with tachycardia and leukocytosis of 13.1 in the setting of suspected UTI. Currently hemodynamically stable. -Continue supportive fluids -Continue with antibiotics -Follow-up blood and urine cultures. 03/09-patient's sepsis is most likely from urinary tract infection. His tac hycardia/lactic acid levels, blood pressures and his acute renal failure are all now improving which are indicative of resolving sepsis. We will like to continue the antibiotic coverage that is on for now and await cultures for further speciation and de-escalation of antibiotics. - Time Spent with Patient Total time spent is greater than 50% in coordination of care (as documented) at patient's floor/unit and/or counseling patient: Internal Medicine: Result - Labs CBC & Chem 7: 03/08/18 22:26 03/08/18 22:27 Labs: Short CBC 03/08/18 Range/Units 22:26 WBC 10.3 (4.3-11.1) K/mcL Hgb 13.5 D (12.9-16.9) g/dL Hct 41.7 (37.5-50.1) % Plt Count 587 H (140-400) K/mcL Neutrophils # 7.6 (1.6-8.9) K/mcL BMP 03/08/18 22:27 Sodium 129 L Potassium 4.3 Chloride 100 Carbon Dioxide 17 L BUN 100 H Creatinine 1.88 H Glucose 130 H Calcium 9.1 Liver Function 03/08/18 Range/Units 22:27 Total Bilirubin 0.4 (0.3-1.0) mg/dL AST 13 (13-39) Units/L ALT 31 (7-52) Units/L Alkaline Phosphatase 90 (34-104) Units/L Albumin 3.5 (3.5-5.7) g/dL - ABG Interpretation ABG results: PT/INR, D-dimer PT 11.5 Seconds (9.4-12.1) 03/08/18 23:59 Consult Discharge Plan - Plan Referrals: Solis Valdez DO [Primary Care Provider] - (3) Altered mental status Qualifiers: Altered mental status type: unspecified Qualified Code(s): R41.82 - Altered mental status, unspecified (4) Urinary tract infection Qualifiers: Qualified Code(s): N39.0 - Urinary tract infection, site not specified; R31.9 - Hematuria, unspecified (5) Sepsis Qualifiers: Sepsis type: sepsis due to unspecified organism Qualified Code(s): A41.9 - Sepsis, unspecified organism
[2018-03-10] MEDS: *HR* Heparin 5,000 UNIT/ML VIAL SQ SCH ×3 (05:29→21:15)
[2018-03-10 08:22] LABS: Basophils % 0.6 %; Eosinophils # 0.2 K/mcL (0.0-0.6); Eosinophils % 2.2 %; Hematocrit 36.4 % (37.5-50.1); Immature Granulocytes % 0.7 % (0-4); Lymphocytes # 1.6 K/mcL (0.6-4.6); Lymphocytes % 23.6 %; Mean Corpuscular HGB Conc 32.7 g/dL (31.6-35.5); Mean Corpuscular Hemoglobin 27.8 pg (28.0-33.3); Monocytes % 14.5 %; Platelet Count 521 K/mcL (140-400); Red Blood Count 4.28 M/mcL (4.19-5.50); Red Cell Distribution Width 17.4 % (11.5-14.5); Segmented Neutrophils % 58.4 %
[2018-03-10 08:23] LABS: Hemoglobin 11.9 g/dL (12.9-16.9)
[2018-03-10 08:25] LABS: Calcium 8.8 mg/dL (8.6-10.3); Potassium 3.7 mEq/L (3.5-5.1)
[2018-03-10] MEDS: cefTRIAXone 1,000 MG in 0.9 % Sodium Chloride Mini Bag 100 ML IVPB SCH (09:37)
[2018-03-10] MEDS ORDERED: *HR* Metoprolol 5 MG/5 ML VIAL IVP SCH (12:00)
[2018-03-10] MEDS ORDERED: Naloxone 0.4 MG/ML INJ IVP PRN (13:44)
[2018-03-10] MEDS ORDERED: traMADol 50 MG TABLET PO PRN (13:44)
[2018-03-10] MEDS ORDERED: Acetaminophen 325 MG TABLET PO PRN (13:44)
--- NOTE | 2018-03-10 14:34 | Internal Med Progress Note ---
Hospitalist Progress Note - Encounter Date of Encounter: 03/10/18 Time of Encounter: 11:00 - Subjective Interval History: Patient is alert and oriented 4 and reports mild suprapubic discomfort that is better than the last 2 days. No fever/chills or N/V. - Exam Vitals: Temp Pulse Resp BP Pulse Ox 97.3 F L 101 18 131/77 96 03/10/18 11:40 03/10/18 11:40 03/10/18 11:40 03/10/18 11:40 03/10/18 11:40 Exam: GENERAL: Alert, oriented x3, no distress, cooperative LUNGS: Lungs clear to auscultation CARDIAC: Normal S1 and S2; no rubs, murmurs, or gallops ABDOMEN: soft, mild suprapubic tenderness : No CVA tenderness NEURO: grossly non-focal - Assessment and Plan (1) Sepsis Current Visit: No Status: Acute Assessment and Plan: Patient presents with tachycardia and leukocytosis of 13.1 in the setting of suspected UTI. Currently hemodynamically stable. UA +ve at the outside hospital WBC normalized on IV Rocephin, continue MARY improving, will d/c IVF as he is able to take by mouth follow up on blood/urine culture (2) MARY (acute kidney injury) Current Visit: No Status: Resolved Assessment and Plan: Patient appears to have acute kidney injury with a creatinine of 2.38. Baseline appears to be near 1.2. We will continue fluids and monitor kidney function. improved to 1.49, resolving metabolic encephalopathy and able to take by mouth d/c IVF monitor Cr avoid nephrotoxins (3) Metabolic encephalopathy Current Visit: Yes Status: Resolved Assessment and Plan: likely due to sepsis, resolving (4) Urinary tract infection Current Visit: No Status: Acute Assessment and Plan: as above (5) DVT prophylaxis Current Visit: No Status: Acute Assessment and Plan: Subcutaneous heparin - Time Spent with Patient Total time spent is greater than 50% in coordination of care (as documented) at patient's floor/unit and/or counseling patient: Plan of Care Discussed with: patient Internal Medicine: Result - Labs CBC & Chem 7: 03/10/18 07:46 03/10/18 07:46 Labs: Short CBC 03/10/18 Range/Units 07:46 WBC 6.8 (4.3-11.1) K/mcL Hgb 11.9 L D (12.9-16.9) g/dL Hct 36.4 L (37.5-50.1) % Plt Count 521 H (140-400) K/mcL Neutrophils # 4.0 (1.6-8.9) K/mcL BMP 03/10/18 07:46 Sodium 132 L Potassium 3.7 Chloride 104 Carbon Dioxide 21 L BUN 70 H Creatinine 1.49 H Glucose 167 H Calcium 8.8 - ABG Interpretation ABG results: PT/INR, D-dimer PT 11.5 Seconds (9.4-12.1) 03/08/18 23:59 Consult Discharge Plan - Plan Referrals: Solis Valdez DO [Primary Care Provider] - ___ (1) Sepsis Qualifiers: Sepsis type: sepsis due to unspecified organism Qualified Code(s): A41.9 - Sepsis, unspecified organism (4) Urinary tract infection Qualifiers: Qualified Code(s): N39.0 - Urinary tract infection, site not specified; R31.9 - Hematuria, unspecified
[2018-03-11] MEDS: *HR* Heparin 5,000 UNIT/ML VIAL SQ SCH ×2 (05:19→13:51)
[2018-03-11 05:43] LABS: Basophils # 0.1 K/mcL (0.0-0.2); Basophils % 0.6 %; Eosinophils # 0.2 K/mcL (0.0-0.6); Eosinophils % 2.3 %; Hemoglobin 11.6 g/dL (12.9-16.9); Immature Granulocytes % 0.6 % (0-4); Lymphocytes # 1.6 K/mcL (0.6-4.6); Lymphocytes % 20.3 %; Mean Corpuscular HGB Conc 32.2 g/dL (31.6-35.5); Mean Corpuscular Hemoglobin 27.4 pg (28.0-33.3); Mean Corpuscular Volume 85.1 fL (83.0-100.0); Mean Platelet Volume 9.3 fL (9.4-12.4); Monocytes # 0.8 K/mcL (0.0-1.3); Monocytes % 10.7 %; Neutrophils # 5.1 K/mcL (1.6-8.9); Platelet Count 530 K/mcL (140-400); Red Blood Count 4.23 M/mcL (4.19-5.50); Red Cell Distribution Width 17.3 % (11.5-14.5); Segmented Neutrophils % 65.5 %
[2018-03-11 06:01] LABS: Calcium 8.9 mg/dL (8.6-10.3); Magnesium 2.1 mg/dL (1.6-2.6); Potassium 3.8 mEq/L (3.5-5.1)
[2018-03-11] MEDS: cefTRIAXone 1,000 MG in 0.9 % Sodium Chloride Mini Bag 100 ML IVPB SCH (07:21)
[2018-03-11] MEDS ORDERED: Finasteride 5 MG TABLET PO SCH (09:00)
--- NOTE | 2018-03-11 10:39 | Discharge Summary ---
- NOTES TO OUTPATIENT PROVIDER Notes to Outpatient Provider: Patient was admitted for sepsis and metabolic encephalopathy secondary to UTI as well as MARY. Blood/urine culture -ve and patient clinically improved with IV Rocephin and IVF. Will be discharged home on PO Omnicef for 5 more days while continuing to hold off on chlorthalidone and losartan given kidney injury. Repeat BMP in 3 days and restart as needed. Orders not resulted at time of discharge: Pending orders 03/08/18 00:09 Culture,Blood [BC] Routine Date of Encounter: 03/11/18 Time of Encounter: 07:45 - Discharge Diagnosis (1) Sepsis Priority: Primary Status: Acute Qualifiers: Sepsis type: sepsis due to unspecified organism Qualified Code(s): A41.9 - Sepsis, unspecified organism (2) MARY (acute kidney injury) Priority: Secondary Status: Resolved (3) Metabolic encephalopathy Priority: Secondary Status: Resolved (4) Urinary tract infection Priority: Secondary Status: Acute Qualifiers: Qualified Code(s): N39.0 - Urinary tract infection, site not specified; R31.9 - Hematuria, unspecified (5) DVT prophylaxis Priority: Secondary Status: Acute Hospital course: Mr. Baptiste is a 82 year old male was admitted for sepsis and metabolic encephalopathy secondary to UTI as well as MARY. Blood/urine culture -ve and patient clinically improved with IV Rocephin and IVF. Will be discharged home on PO Omnicef for 5 more days while continuing to hold off on chlorthalidone and losartan given kidney injury. Repeat BMP in 3 days and restart as needed. Discharge discussed with: patient, nurse - Time Spent with Patient Total time spent providing and/or coordinating discharge services: 36 mins - Discharge Medications Prescriptions: Cefdinir [Omnicef] 300 mg PO BID 5 Days #10 capsule Home Medications: Finasteride [Proscar] 5 mg PO DAILY 07/23/17 [History] Metoprolol [Lopressor] 50 mg PO DAILY 07/23/17 [History] Omeprazole [PriLOSEC] 40 mg PO BID 07/23/17 [History] HYDROcodone/Acet 5/325 mg [[place] 5-325 mg] 1 tab PO Q6HR PRN 4 Days #12 tablet 07/28/17 [Rx] Cefdinir [Omnicef] 300 mg PO BID 5 Days #10 capsule 03/11/18 [Rx] Allergies/Adverse Reactions: Allergy/AdvReac Type Severity Reaction Status Date / Time aspirin Allergy Nausea Verified 07/23/17 10:55 Date of admission: 03/09/18 09:47 Primary care physician: Solis Valdez Consults: 03/09/18 00:04 Consult to [place] Administrator [CONS] Routine Reason for SW Consult: Patient states that as of recent he is bedbound. States that he lives alone and "a friend of his" comes over to cook, clean, and bathe him. 03/10/18 14:32 Consult to Occupational Therapy [CONS] Routine Comment: Evaluate, develop and implement POC Reason for Consult: sepsis, deconditioning Does patient have active BEDREST order?: No Is patient medically & hemodynamically stable?: Yes Consult to Physical Therapy [CONS] Routine Comment: Evaluate, develop and implement POC Reason for Consult: sepsis, deconditioning Does patient have active BEDREST order?: No Is patient medically & hemodynamically stable?: Yes - Constitutional Vitals: Temp Pulse Resp BP Pulse Ox 98.0 F 91 16 114/64 94 03/11/18 07:48 03/11/18 07:48 03/11/18 07:48 03/11/18 07:48 03/11/18 07:48 Exam: GENERAL: Alert, oriented x3, no distress, cooperative LUNGS: Lungs clear to auscultation CARDIAC: Normal S1 and S2; no rubs, murmurs, or gallops ABDOMEN: soft, mild suprapubic tenderness : No CVA tenderness NEURO: grossly non-focal - Patient Status Disposition: Home, Self-Care Condition: Fair Functional capacity at discharge: independent ambulation - Discharge Instructions Instructions: Sepsis (DC), Urinary Tract Infection in Men (DC), Chronic Hypertension (DC) Follow Up With: Solis Valdez DO [Primary Care Provider] - Additional Instructions: Complete 5 more days of Omnicef Losartan and Chlorthalidone on hold, repeat BMP in 3 days and resume as needed Follow up with PCP - Diet and Activity Activity: resume usual activities as tolerated Diet: regular diet
[2018-03-11 12:34] VITALS: BP 100/56
== END 2018-03-11 16:00 | disposition home or self-care (01) | DRG 871 ==
LOC: 3ANU → SUATTDRO 19:59
PROVIDERS: ADMIT Internal Medicine; ATTEND Internal Medicine

== ENCOUNTER 2020-01-31 18:01 | Observation (INO) ==
[2020-01-31] MEDS ORDERED: 0.9 % Sodium Chloride 1,000 ML IVC ONE ×2 (18:17→21:39)
[2020-01-31 18:40] LABS: Basophils # 0.1 K/mcL (0.0-0.2); Basophils % 0.5 %; Eosinophils % 0.1 %; Hematocrit 44.8 % (37.5-50.1); Hemoglobin 14.7 g/dL (12.9-16.9); Immature Granulocytes % 0.6 % (0-4); Lymphocytes # 1.7 K/mcL (0.6-4.6); Lymphocytes % 11.5 %; Mean Corpuscular HGB Conc 32.8 g/dL (31.6-35.5); Mean Corpuscular Hemoglobin 32.5 pg (28.0-33.3); Mean Corpuscular Volume 98.9 fL (83.0-100.0); Mean Platelet Volume 9.5 fL (9.4-12.4); Monocytes # 0.9 K/mcL (0.0-1.3); Monocytes % 6.1 %; Neutrophils # 11.7 K/mcL (1.6-8.9); Platelet Count 466 K/mcL (140-400); Red Blood Count 4.53 M/mcL (4.19-5.50); Red Cell Distribution Width 13.3 % (11.5-14.5); Segmented Neutrophils % 81.2 %; White Blood Count 14.3 K/mcL (4.3-11.1)
[2020-01-31 18:43] LABS: Prothrombin Time 11.3 Seconds (9.4-12.1)
[2020-01-31 18:46] LABS: Activated Partial Thrombo Time 29.5 Seconds (26.0-36.0)
[2020-01-31 19:05] LABS: Albumin 4.1 g/dL (3.5-5.7); Bilirubin,Direct 0.1 mg/dL (0.0-0.2); Bilirubin,Indirect 0.6 mg/dL (0.0-1.0); Bilirubin,Total 0.7 mg/dL (0.3-1.0); Calcium 10.4 mg/dL (8.6-10.3); Magnesium 2.5 mg/dL (1.6-2.6); Phosphorous 4.1 mg/dL (2.7-4.5); Potassium 4.3 mEq/L (3.5-5.1); Total Protein 8.1 g/dL (6.4-8.9); Troponin I 0.04 ng/mL (< 0.04)
[2020-01-31 19:40] LABS: Bilirubin,Urine Small (Negative); Blood,Urine Small (Negative); Clarity,Urine Turbid (Clear); Color,Urine Brown (Yellow); Glucose,Urine (UA) Normal (Normal); Ketones,Urine 15 mg/dL (Negative); Leukocyte Esterase,Urine Large (Negative); Nitrite,Urine Negative (Negative); PH,Urine >=9.0 pH Units (5.0-8.0); Protein,Urine >=300 mg/dL (Neg-Trace); Urobilinogen,Urine Normal (Normal)
[2020-01-31 19:57] LABS: Adenovirus Not Detected (Not Detect); Bordetella Pertussis Not Detected (Not Detect); Chlamydophila pneumoniae Not Detected (Not Detect); Coronavirus 229E Not Detected (Not Detect); Coronavirus HKU1 Not Detected (Not Detect); Coronavirus NL63 Not Detected (Not Detect); Coronavirus OC43 Not Detected (Not Detect); Human Metapneumovirus Not Detected (Not Detect); Human Rhinovirus/Enterovirus Not Detected (Not Detect); Influenza A Subtype 2009 H1 Not Detected (Not Detect); Influenza B Not Detected (Not Detect); Mycoplasma pneumoniae Not Detected (Not Detect); Parainfluenza Virus 1 Not Detected (Not Detect); Parainfluenza Virus 2 Not Detected (Not Detect); Parainfluenza Virus 3 Not Detected (Not Detect); Parainfluenza Virus 4 Not Detected (Not Detect); Respiratory Syncytial Virus Not Detected (Not Detect); SARS-CoV-2 Not Detected (Not Detect)
[2020-01-31 20:11] LABS: Squamous Epithelial Cell,Urine Moderate per hpf (None-Few); WBC,Urine TNTC per hpf (0-3)
[2020-01-31 20:12] LABS: Bacteria,Urine Moderate per hpf (None-Few); Hyaline Casts,Urine None Seen per lpf (None Seen); Mucus,Urine Moderate per lpf (None-Few); Triple Phosphate Crystal,Urine Present
[2020-01-31] MEDS ORDERED: Cefepime HCl 2,000 MG in Water for inj. (sterile) 20 ML IVP STA (21:15)
[2020-01-31] MEDS ORDERED: Naloxone 0.4 MG/ML INJ IVP PRN (22:09)
[2020-01-31] MEDS ORDERED: Ondansetron 4 MG/2 ML VIAL IVP PRN (22:09)
[2020-01-31] MEDS ORDERED: 0.9 % Sodium Chloride 1,000 ML IVC SCH (22:15)
[2020-01-31] MEDS ORDERED: *HR* Dextrose 50 % in Water (Vial) 50 ML VIAL IVP PRN (22:20)
[2020-01-31] MEDS ORDERED: Dextrose Gel 15 GM/37.5 ML TUBE PO PRN ×2 (22:20)
[2020-01-31] MEDS ORDERED: D5% in Water 1,000 ML IVC PRN (22:20)
[2020-02-01 01:03] LABS: Basophils % 0.3 %; Eosinophils # 0.1 K/mcL (0.0-0.6); Eosinophils % 0.5 %; Hemoglobin 13.2 g/dL (12.9-16.9); Immature Granulocytes % 0.5 % (0-4); Lymphocytes # 2.2 K/mcL (0.6-4.6); Lymphocytes % 16.9 %; Mean Corpuscular HGB Conc 32.2 g/dL (31.6-35.5); Mean Corpuscular Hemoglobin 32.3 pg (28.0-33.3); Mean Corpuscular Volume 100.2 fL (83.0-100.0); Mean Platelet Volume 9.5 fL (9.4-12.4); Monocytes # 1.2 K/mcL (0.0-1.3); Neutrophils # 9.3 K/mcL (1.6-8.9); Platelet Count 431 K/mcL (140-400); Red Blood Count 4.09 M/mcL (4.19-5.50); Red Cell Distribution Width 13.3 % (11.5-14.5); Segmented Neutrophils % 72.8 %; White Blood Count 12.8 K/mcL (4.3-11.1)
[2020-02-01 01:25] LABS: Calcium 9.1 mg/dL (8.6-10.3); Magnesium 2.4 mg/dL (1.6-2.6); Potassium 4.2 mEq/L (3.5-5.1); Troponin I 0.04 ng/mL (< 0.04)
[2020-02-01] MEDS: Cefepime HCl 1,000 MG in 0.9 % Sodium Chloride Mini Bag 100 ML IVPB SCH ×2 (05:22→16:56)
[2020-02-01] MEDS: *HR* Heparin 5,000 UNIT/ML VIAL SQ SCH ×3 (05:23→20:41)
[2020-02-01] MEDS: Insulin LISPRO 300 UNITS/3 ML VIAL SQ SCH ×4 (07:41→20:41)
[2020-02-01] MEDS: Finasteride 5 MG TABLET PO SCH (08:02)
[2020-02-01] MEDS: Ciprofloxacin HCL Soln 5 ML BOTTLE LEFT EYE SCH ×3 (08:25→15:31)
[2020-02-01] MEDS: Ciprofloxacin HCL Soln 5 ML BOTTLE RIGHT EYE SCH ×3 (08:27→15:32)
[2020-02-01] MEDS: Ciprofloxacin HCL Soln 5 ML BOTTLE BOTH EYES SCH (20:41)
[2020-02-02] MEDS ORDERED: Acetaminophen 325 MG TABLET PO PRN (02:31)
[2020-02-02] MEDS: *HR* Heparin 5,000 UNIT/ML VIAL SQ SCH ×3 (04:57→23:21)
[2020-02-02] MEDS: Cefepime HCl 1,000 MG in 0.9 % Sodium Chloride Mini Bag 100 ML IVPB SCH ×2 (04:58→18:13)
[2020-02-02 06:00] LABS: Basophils # 0.1 K/mcL (0.0-0.2); Basophils % 0.7 %; Eosinophils # 0.5 K/mcL (0.0-0.6); Eosinophils % 4.5 %; Hematocrit 38.3 % (37.5-50.1); Hemoglobin 12.6 g/dL (12.9-16.9); Immature Granulocytes % 0.5 % (0-4); Lymphocytes # 2.6 K/mcL (0.6-4.6); Lymphocytes % 23.1 %; Mean Corpuscular HGB Conc 32.9 g/dL (31.6-35.5); Mean Corpuscular Hemoglobin 32.3 pg (28.0-33.3); Mean Corpuscular Volume 98.2 fL (83.0-100.0); Mean Platelet Volume 9.5 fL (9.4-12.4); Monocytes % 8.6 %; Platelet Count 351 K/mcL (140-400); Red Cell Distribution Width 13.2 % (11.5-14.5); Segmented Neutrophils % 62.6 %; White Blood Count 11.1 K/mcL (4.3-11.1)
[2020-02-02 06:22] LABS: Calcium 8.9 mg/dL (8.6-10.3); Potassium 3.9 mEq/L (3.5-5.1)
[2020-02-02] MEDS: Insulin LISPRO 300 UNITS/3 ML VIAL SQ SCH ×4 (08:25→20:50)
[2020-02-02] MEDS: Finasteride 5 MG TABLET PO SCH (08:37)
[2020-02-02] MEDS: Ciprofloxacin HCL Soln 5 ML BOTTLE BOTH EYES SCH ×4 (08:37→19:53)
[2020-02-03 05:34] LABS: Basophils # 0.1 K/mcL (0.0-0.2); Basophils % 0.7 %; Eosinophils # 0.5 K/mcL (0.0-0.6); Eosinophils % 5.2 %; Hematocrit 34.9 % (37.5-50.1); Hemoglobin 11.6 g/dL (12.9-16.9); Immature Granulocytes % 0.4 % (0-4); Lymphocytes # 2.7 K/mcL (0.6-4.6); Lymphocytes % 29.3 %; Mean Corpuscular HGB Conc 33.2 g/dL (31.6-35.5); Mean Corpuscular Hemoglobin 31.7 pg (28.0-33.3); Mean Corpuscular Volume 95.4 fL (83.0-100.0); Mean Platelet Volume 9.7 fL (9.4-12.4); Monocytes # 0.8 K/mcL (0.0-1.3); Platelet Count 431 K/mcL (140-400); Red Blood Count 3.66 M/mcL (4.19-5.50); Red Cell Distribution Width 12.9 % (11.5-14.5); Segmented Neutrophils % 55.4 %
[2020-02-03] MEDS: Cefepime HCl 1,000 MG in 0.9 % Sodium Chloride Mini Bag 100 ML IVPB SCH (05:50)
[2020-02-03] MEDS: *HR* Heparin 5,000 UNIT/ML VIAL SQ SCH (05:50)
[2020-02-03 05:51] LABS: Calcium 8.7 mg/dL (8.6-10.3); Potassium 3.7 mEq/L (3.5-5.1)
[2020-02-03 06:39] VITALS: BP 113/65
[2020-02-03] MEDS: Insulin LISPRO 300 UNITS/3 ML VIAL SQ SCH (08:04)
[2020-02-03] MEDS: Finasteride 5 MG TABLET PO SCH (08:04)
[2020-02-03] MEDS: Ciprofloxacin HCL Soln 5 ML BOTTLE BOTH EYES SCH (08:05)
== END 2020-02-03 11:40 | disposition home or self-care (01) ==
LOC: 3BNU 18:01 → EMEROOARM 18:01 → 3BNU 22:41
PROVIDERS: ADMIT Family Medicine; ATTEND Family Medicine

== ENCOUNTER 2020-07-06 15:57 | Inpatient (IN) ==
[2020-07-06] MEDS ORDERED: Melatonin 3 MG TABLET PO PRN (20:17)
[2020-07-06] MEDS ORDERED: Naloxone 0.4 MG/ML INJ IVP PRN (20:17)
[2020-07-06] MEDS ORDERED: Ondansetron 4 MG/2 ML VIAL IVP PRN (20:17)
[2020-07-06] MEDS ORDERED: D5% in Water 1,000 ML IVC PRN (20:22)
[2020-07-06] MEDS ORDERED: Dextrose Gel 15 GM/37.5 ML TUBE PO PRN ×2 (20:22)
[2020-07-06] MEDS ORDERED: *HR* Dextrose 50 % in Water (Vial) 50 ML VIAL IVP PRN (20:22)
[2020-07-06] MEDS ORDERED: Vancomycin 1,500 MG/265 ML IV.SOLN IVPB ONE (23:00)
[2020-07-07] MEDS: Piperacillin/Tazobactam 3.375 GM in 0.9 % Sodium Chloride Mini Bag 100 ML IVPB SCH ×4 (00:05→23:37)
[2020-07-07] MEDS: Insulin LISPRO 300 UNITS/3 ML VIAL SUBQ SCH ×4 (00:07→18:02)
[2020-07-07 02:18] LABS: Basophils # 0.1 K/mcL (0.0-0.2); Basophils % 0.6 %; Eosinophils # 0.6 K/mcL (0.0-0.6); Eosinophils % 7.2 %; Hematocrit 31.6 % (37.5-50.1); Hemoglobin 10.1 g/dL (12.9-16.9); Immature Granulocytes % 0.5 % (0-4); Lymphocytes # 2.4 K/mcL (0.6-4.6); Lymphocytes % 28.3 %; Mean Corpuscular Hemoglobin 31.7 pg (28.0-33.3); Mean Corpuscular Volume 99.1 fL (83.0-100.0); Mean Platelet Volume 8.9 fL (9.4-12.4); Neutrophils # 4.5 K/mcL (1.6-8.9); Platelet Count 522 K/mcL (140-400); Red Blood Count 3.19 M/mcL (4.19-5.50); Red Cell Distribution Width 13.8 % (11.5-14.5); Segmented Neutrophils % 52.4 %; White Blood Count 8.6 K/mcL (4.3-11.1)
[2020-07-07 02:36] LABS: Alanine Aminotransferase 13 Units/L (7-52); Alkaline Phosphatase 45 Units/L (34-104); Aspartate Amino Transferase 10 Units/L (13-39); BUN/Creatinine Ratio 27 (6-26); Bilirubin,Total 0.3 mg/dL (0.3-1.0); Blood Urea Nitrogen 57 mg/dL (8-23); Calcium 8.6 mg/dL (8.6-10.3); Carbon Dioxide 22 mEq/L (23-29); Chloride 110 mEq/L (98-107); Globulin 3.1 g/dL (2.4-3.5); Glucose 115 mg/dL (70-105); Magnesium 2.2 mg/dL (1.6-2.6); Osmolality,Calculated 305 (280-300); Phosphorous 3.8 mg/dL (2.7-4.5); Potassium 3.9 mEq/L (3.5-5.1); Sodium 139 mEq/L (136-145); Total Protein 6.1 g/dL (6.4-8.9); Troponin I < 0.03 ng/mL (< 0.04); eGFR For African Americans 37 (> 60); eGFR For Non-African Americans 30 (> 60)
[2020-07-07 09:20] LABS: C-Reactive Protein 30 mg/L (Less than 10)
[2020-07-07 11:49] LABS: Estimated Average Glucose 134 mg/dl; Hemoglobin A1C 6.3 %
[2020-07-07] MEDS: Vancomycin 1,500 MG/265 ML IV.SOLN IVPB SCH (23:45)
[2020-07-08 01:22] LABS: Basophils # 0.1 K/mcL (0.0-0.2); Basophils % 0.8 %; Eosinophils # 0.6 K/mcL (0.0-0.6); Eosinophils % 7.8 %; Hematocrit 30.1 % (37.5-50.1); Hemoglobin 9.6 g/dL (12.9-16.9); Immature Granulocytes % 0.4 % (0-4); Lymphocytes # 2.2 K/mcL (0.6-4.6); Lymphocytes % 27.5 %; Mean Corpuscular HGB Conc 31.9 g/dL (31.6-35.5); Mean Corpuscular Hemoglobin 31.1 pg (28.0-33.3); Mean Corpuscular Volume 97.4 fL (83.0-100.0); Mean Platelet Volume 9.2 fL (9.4-12.4); Monocytes # 0.6 K/mcL (0.0-1.3); Monocytes % 7.9 %; Neutrophils # 4.4 K/mcL (1.6-8.9); Platelet Count 521 K/mcL (140-400); Red Blood Count 3.09 M/mcL (4.19-5.50); Red Cell Distribution Width 13.9 % (11.5-14.5); Segmented Neutrophils % 55.6 %; White Blood Count 7.9 K/mcL (4.3-11.1)
[2020-07-08 01:33] LABS: Calcium 8.5 mg/dL (8.6-10.3); Potassium 4.1 mEq/L (3.5-5.1)
[2020-07-08] MEDS: Insulin LISPRO 300 UNITS/3 ML VIAL SUBQ SCH ×6 (02:03→23:02)
[2020-07-08] MEDS: Piperacillin/Tazobactam 3.375 GM in 0.9 % Sodium Chloride Mini Bag 100 ML IVPB SCH ×2 (07:36→14:56)
[2020-07-08] MEDS: Finasteride 5 MG TABLET PO SCH (07:37)
[2020-07-08] MEDS: Vancomycin 1,500 MG/265 ML IV.SOLN IVPB SCH (23:55)
[2020-07-09 01:04] LABS: Basophils # 0.1 K/mcL (0.0-0.2); Basophils % 0.8 %; Eosinophils # 0.7 K/mcL (0.0-0.6); Eosinophils % 7.6 %; Hematocrit 30.4 % (37.5-50.1); Hemoglobin 9.5 g/dL (12.9-16.9); Immature Granulocytes % 0.3 % (0-4); Lymphocytes # 2.5 K/mcL (0.6-4.6); Lymphocytes % 28.6 %; Mean Corpuscular HGB Conc 31.3 g/dL (31.6-35.5); Mean Corpuscular Hemoglobin 30.5 pg (28.0-33.3); Mean Corpuscular Volume 97.7 fL (83.0-100.0); Mean Platelet Volume 8.9 fL (9.4-12.4); Monocytes # 0.6 K/mcL (0.0-1.3); Monocytes % 7.4 %; Neutrophils # 4.8 K/mcL (1.6-8.9); Platelet Count 493 K/mcL (140-400); Red Blood Count 3.11 M/mcL (4.19-5.50); Red Cell Distribution Width 13.9 % (11.5-14.5); Segmented Neutrophils % 55.3 %; White Blood Count 8.7 K/mcL (4.3-11.1)
[2020-07-09] MEDS: Piperacillin/Tazobactam 3.375 GM in 0.9 % Sodium Chloride Mini Bag 100 ML IVPB SCH ×2 (01:13→07:39)
[2020-07-09 01:24] LABS: Calcium 8.7 mg/dL (8.6-10.3); Potassium 4.1 mEq/L (3.5-5.1)
[2020-07-09] MEDS: Finasteride 5 MG TABLET PO SCH (07:39)
[2020-07-09] MEDS: Insulin LISPRO 300 UNITS/3 ML VIAL SUBQ SCH ×4 (07:40→20:08)
[2020-07-09] MEDS ORDERED: levoFLOXacin 750 MG/150 ML 750 MG/150 ML BAG IVPB SCH (13:00)
[2020-07-09] MEDS ORDERED: 0.9 % Sodium Chloride 1,000 ML ONE (14:20)
[2020-07-09] MEDS ORDERED: Heparin 1,000 UNITS/500 mL 500 ML ONE (14:20)
[2020-07-09] MEDS ORDERED: *HR* Heparin 10,000 UNIT/10 ML VIAL ONE (14:20)
[2020-07-09] MEDS ORDERED: *HR* Midazolam HCl 2 MG/2 ML VIAL ONE (14:41)
[2020-07-10 01:14] LABS: Basophils # 0.1 K/mcL (0.0-0.2); Basophils % 0.9 %; Eosinophils # 0.5 K/mcL (0.0-0.6); Eosinophils % 7.2 %; Hematocrit 30.4 % (37.5-50.1); Hemoglobin 9.7 g/dL (12.9-16.9); Immature Granulocytes % 0.3 % (0-4); Lymphocytes # 1.9 K/mcL (0.6-4.6); Lymphocytes % 26.1 %; Mean Corpuscular HGB Conc 31.9 g/dL (31.6-35.5); Mean Corpuscular Hemoglobin 30.8 pg (28.0-33.3); Mean Corpuscular Volume 96.5 fL (83.0-100.0); Mean Platelet Volume 9.1 fL (9.4-12.4); Monocytes # 0.7 K/mcL (0.0-1.3); Monocytes % 9.5 %; Neutrophils # 4.2 K/mcL (1.6-8.9); Platelet Count 506 K/mcL (140-400); Red Blood Count 3.15 M/mcL (4.19-5.50); Red Cell Distribution Width 13.7 % (11.5-14.5); White Blood Count 7.4 K/mcL (4.3-11.1)
[2020-07-10 01:30] LABS: Calcium 8.7 mg/dL (8.6-10.3)
[2020-07-10] MEDS: Insulin LISPRO 300 UNITS/3 ML VIAL SUBQ SCH ×4 (07:51→22:29)
[2020-07-10] MEDS: Finasteride 5 MG TABLET PO SCH (09:42)
[2020-07-10] MEDS ORDERED: Lidocaine -MPF 2% 2 ML VIAL ONE (15:26)
[2020-07-10] MEDS ORDERED: Bupivacaine/Clonidine Syringe 20 ML, Syringe LUER-LOK 1 EACH TP ONE (16:00)
[2020-07-10] MEDS ORDERED: D5% in Water 1,000 ML IVC PRN (18:19)
[2020-07-10] MEDS ORDERED: Ondansetron 4 MG/2 ML VIAL IVP PRN (18:19)
[2020-07-10] MEDS ORDERED: Naloxone 0.4 MG/ML INJ IVP PRN (18:19)
[2020-07-10] MEDS ORDERED: Dextrose Gel 15 GM/37.5 ML TUBE PO PRN ×2 (18:19)
[2020-07-10] MEDS ORDERED: Melatonin 3 MG TABLET PO PRN (18:19)
[2020-07-10] MEDS ORDERED: *HR* Dextrose 50 % in Water (Vial) 50 ML VIAL IVP PRN (18:19)
[2020-07-11 01:33] LABS: Basophils # 0.1 K/mcL (0.0-0.2); Basophils % 0.8 %; Eosinophils # 0.5 K/mcL (0.0-0.6); Eosinophils % 7.9 %; Hematocrit 32.2 % (37.5-50.1); Hemoglobin 10.5 g/dL (12.9-16.9); Immature Granulocytes % 0.3 % (0-4); Lymphocytes # 2.2 K/mcL (0.6-4.6); Lymphocytes % 33.6 %; Mean Corpuscular HGB Conc 32.6 g/dL (31.6-35.5); Mean Corpuscular Hemoglobin 31.2 pg (28.0-33.3); Mean Corpuscular Volume 95.5 fL (83.0-100.0); Mean Platelet Volume 9.2 fL (9.4-12.4); Monocytes # 0.7 K/mcL (0.0-1.3); Monocytes % 10.9 %; Neutrophils # 3.1 K/mcL (1.6-8.9); Platelet Count 517 K/mcL (140-400); Red Blood Count 3.37 M/mcL (4.19-5.50); Red Cell Distribution Width 13.6 % (11.5-14.5); Segmented Neutrophils % 46.5 %; White Blood Count 6.6 K/mcL (4.3-11.1)
[2020-07-11 01:37] LABS: Calcium 9.2 mg/dL (8.6-10.3); Magnesium 2.1 mg/dL (1.6-2.6); Potassium 3.8 mEq/L (3.5-5.1)
[2020-07-11] MEDS: Insulin LISPRO 300 UNITS/3 ML VIAL SUBQ SCH ×4 (08:21→20:52)
[2020-07-11] MEDS: Finasteride 5 MG TABLET PO SCH (08:30)
[2020-07-11] MEDS: levoFLOXacin 750 MG/150 ML 750 MG/150 ML BAG IVPB SCH (14:25)
[2020-07-11] MEDS: *HR* Heparin 5,000 UNIT/ML VIAL SQ SCH (18:10)
[2020-07-12 02:22] LABS: Basophils # 0.1 K/mcL (0.0-0.2); Basophils % 0.6 %; Eosinophils # 0.4 K/mcL (0.0-0.6); Eosinophils % 4.8 %; Hemoglobin 10.2 g/dL (12.9-16.9); Immature Granulocytes % 0.5 % (0-4); Lymphocytes # 2.2 K/mcL (0.6-4.6); Lymphocytes % 26.7 %; Mean Corpuscular HGB Conc 32.9 g/dL (31.6-35.5); Mean Corpuscular Hemoglobin 31.2 pg (28.0-33.3); Mean Corpuscular Volume 94.8 fL (83.0-100.0); Mean Platelet Volume 9.3 fL (9.4-12.4); Monocytes # 0.9 K/mcL (0.0-1.3); Monocytes % 10.4 %; Neutrophils # 4.7 K/mcL (1.6-8.9); Platelet Count 506 K/mcL (140-400); Red Blood Count 3.27 M/mcL (4.19-5.50); Red Cell Distribution Width 13.5 % (11.5-14.5); White Blood Count 8.3 K/mcL (4.3-11.1)
[2020-07-12 02:35] LABS: Calcium 9.3 mg/dL (8.6-10.3); Phosphorous 3.6 mg/dL (2.7-4.5); Potassium 4.2 mEq/L (3.5-5.1)
[2020-07-12] MEDS: *HR* Heparin 5,000 UNIT/ML VIAL SQ SCH ×2 (06:01→15:55)
[2020-07-12] MEDS: Insulin LISPRO 300 UNITS/3 ML VIAL SUBQ SCH ×4 (08:58→20:14)
[2020-07-12] MEDS: Finasteride 5 MG TABLET PO SCH (09:20)
[2020-07-13 01:19] LABS: Calcium 9.5 mg/dL (8.6-10.3); Potassium 3.9 mEq/L (3.5-5.1)
[2020-07-13] MEDS: *HR* Heparin 5,000 UNIT/ML VIAL SQ SCH ×2 (05:48→17:54)
[2020-07-13] MEDS: Finasteride 5 MG TABLET PO SCH (08:08)
[2020-07-13] MEDS: Insulin LISPRO 300 UNITS/3 ML VIAL SUBQ SCH ×4 (08:16→20:26)
[2020-07-13] MEDS: levoFLOXacin 750 MG/150 ML 750 MG/150 ML BAG IVPB SCH (12:11)
[2020-07-14 01:32] LABS: Basophils # 0.1 K/mcL (0.0-0.2); Basophils % 0.7 %; Eosinophils # 0.7 K/mcL (0.0-0.6); Eosinophils % 7.5 %; Hematocrit 29.6 % (37.5-50.1); Hemoglobin 9.8 g/dL (12.9-16.9); Immature Granulocytes % 0.8 % (0-4); Lymphocytes # 2.7 K/mcL (0.6-4.6); Lymphocytes % 30.5 %; Mean Corpuscular HGB Conc 33.1 g/dL (31.6-35.5); Mean Corpuscular Hemoglobin 31.7 pg (28.0-33.3); Mean Corpuscular Volume 95.8 fL (83.0-100.0); Mean Platelet Volume 9.6 fL (9.4-12.4); Monocytes # 0.9 K/mcL (0.0-1.3); Monocytes % 9.9 %; Neutrophils # 4.5 K/mcL (1.6-8.9); Platelet Count 474 K/mcL (140-400); Red Blood Count 3.09 M/mcL (4.19-5.50); Red Cell Distribution Width 13.9 % (11.5-14.5); Segmented Neutrophils % 50.6 %; White Blood Count 8.9 K/mcL (4.3-11.1)
[2020-07-14] MEDS: *HR* Heparin 5,000 UNIT/ML VIAL SQ SCH ×2 (05:37→16:47)
[2020-07-14] MEDS: Insulin LISPRO 300 UNITS/3 ML VIAL SUBQ SCH ×4 (08:57→21:02)
[2020-07-14] MEDS: Finasteride 5 MG TABLET PO SCH (08:58)
[2020-07-15] MEDS: *HR* Heparin 5,000 UNIT/ML VIAL SQ SCH ×2 (06:25→16:43)
[2020-07-15] MEDS: Finasteride 5 MG TABLET PO SCH (08:44)
[2020-07-15] MEDS: Insulin LISPRO 300 UNITS/3 ML VIAL SUBQ SCH ×4 (08:44→21:21)
[2020-07-15] MEDS: levoFLOXacin 750 MG/150 ML 750 MG/150 ML BAG IVPB SCH (13:04)
[2020-07-16] MEDS: *HR* Heparin 5,000 UNIT/ML VIAL SQ SCH (06:23)
[2020-07-16 08:19] VITALS: BP 104/63
[2020-07-16] MEDS: Insulin LISPRO 300 UNITS/3 ML VIAL SUBQ SCH (09:04)
[2020-07-16] MEDS: Finasteride 5 MG TABLET PO SCH (09:38)
[2020-07-16 11:38] LABS: Adenovirus Not Detected (Not Detect); Bordetella Pertussis Not Detected (Not Detect); Chlamydophila pneumoniae Not Detected (Not Detect); Coronavirus 229E Not Detected (Not Detect); Coronavirus HKU1 Not Detected (Not Detect); Coronavirus NL63 Not Detected (Not Detect); Coronavirus OC43 Not Detected (Not Detect); Human Metapneumovirus Not Detected (Not Detect); Human Rhinovirus/Enterovirus Not Detected (Not Detect); Influenza A Subtype 2009 H1 Not Detected (Not Detect); Influenza B Not Detected (Not Detect); Mycoplasma pneumoniae Not Detected (Not Detect); Parainfluenza Virus 1 Not Detected (Not Detect); Parainfluenza Virus 2 Not Detected (Not Detect); Parainfluenza Virus 3 Not Detected (Not Detect); Parainfluenza Virus 4 Not Detected (Not Detect); Respiratory Syncytial Virus Not Detected (Not Detect); SARS-CoV-2 Not Detected (Not Detect)
== END 2020-07-16 14:42 | disposition other institution (70) | DRG 240 ==
LOC: 3NENU → SUATTDRO 19:22
PROVIDERS: ADMIT Internal Medicine; ATTEND Student in an Organized Health Care Education/Training Program

== ENCOUNTER 2020-10-22 14:35 | Inpatient (IN) ==
[2020-10-22 19:27] LABS: Basophils % 0.2 %; Eosinophils # 0.2 K/mcL (0.0-0.6); Eosinophils % 1.2 %; Hematocrit 36.6 % (37.5-50.1); Hemoglobin 12.1 g/dL (12.9-16.9); Immature Granulocytes % 0.4 % (0-4); Lymphocytes # 1.6 K/mcL (0.6-4.6); Lymphocytes % 12.6 %; Mean Corpuscular HGB Conc 33.1 g/dL (31.6-35.5); Mean Corpuscular Hemoglobin 31.3 pg (28.0-33.3); Mean Corpuscular Volume 94.6 fL (83.0-100.0); Mean Platelet Volume 10.1 fL (9.4-12.4); Monocytes # 1.1 K/mcL (0.0-1.3); Monocytes % 8.5 %; Neutrophils # 9.8 K/mcL (1.6-8.9); Platelet Count 464 K/mcL (140-400); Red Blood Count 3.87 M/mcL (4.19-5.50); Red Cell Distribution Width 14.4 % (11.5-14.5); Segmented Neutrophils % 77.1 %; White Blood Count 12.7 K/mcL (4.3-11.1)
[2020-10-22 19:33] LABS: Prothrombin Time 11.9 Seconds (9.4-12.1)
[2020-10-22 19:36] LABS: Activated Partial Thrombo Time 32.3 Seconds (26.0-36.0)
[2020-10-22 19:54] LABS: Albumin 3.6 g/dL (3.5-5.7); Albumin/Globulin Ratio 0.9 (1.1-2.2); Bilirubin,Total 0.3 mg/dL (0.3-1.0); Calcium 9.5 mg/dL (8.6-10.3); Globulin 4.2 g/dL (2.4-3.5); Potassium 3.7 mEq/L (3.5-5.1); Total Protein 7.8 g/dL (6.4-8.9)
[2020-10-22] MEDS ORDERED: *HR* OxyCODONE Immed Rel 5 MG TABLET PO PRN (20:42)
[2020-10-22] MEDS ORDERED: Naloxone 0.4 MG/ML INJ IVP PRN (20:42)
[2020-10-22] MEDS ORDERED: *HR* HYDROcodone/Acet 5/325 mg TABLET PO PRN (20:42)
[2020-10-22] MEDS ORDERED: Ondansetron 4 MG/2 ML VIAL IVP PRN (20:42)
[2020-10-22] MEDS ORDERED: Acetaminophen 325 MG TABLET PO PRN (20:42)
[2020-10-22] MEDS: 0.9 % Sodium Chloride 1,000 ML IVC SCH (22:57)
[2020-10-22] MEDS ORDERED: levoFLOXacin 750 MG/150 ML 750 MG/150 ML BAG IVPB SCH (23:45)
[2020-10-23 00:56] LABS: Estimated Average Glucose 114 mg/dl; Hemoglobin A1C 5.6 %
[2020-10-23] MEDS: 0.9 % Sodium Chloride 1,000 ML IVC SCH ×2 (04:36→08:01)
[2020-10-23] MEDS ORDERED: Piperacillin/Tazobactam 3.375 GM in 0.9 % Sodium Chloride Mini Bag 100 ML IVPB SCH (06:00)
[2020-10-23 06:06] LABS: Hematocrit 30.9 % (37.5-50.1); Mean Corpuscular HGB Conc 33.7 g/dL (31.6-35.5); Mean Corpuscular Hemoglobin 31.7 pg (28.0-33.3); Mean Corpuscular Volume 94.2 fL (83.0-100.0); Mean Platelet Volume 9.3 fL (9.4-12.4); Platelet Count 425 K/mcL (140-400); Red Blood Count 3.28 M/mcL (4.19-5.50); Red Cell Distribution Width 14.4 % (11.5-14.5)
[2020-10-23 06:08] LABS: Hemoglobin 10.4 g/dL (12.9-16.9)
[2020-10-23 06:32] LABS: Calcium 8.7 mg/dL (8.6-10.3)
[2020-10-23] MEDS ORDERED: Bupivacaine/Clonidine Syringe 20 ML, Syringe LUER-LOK 1 EACH TP ONE (07:45)
[2020-10-23 10:33] LABS: Hematocrit 34.6 % (37.5-50.1); Hemoglobin 11.3 g/dL (12.9-16.9)
[2020-10-23] MEDS ORDERED: Nitroglycerin 0.4 MG TAB.SUBL SL PRN ×2 (11:42→13:09)
[2020-10-23] MEDS ORDERED: Lidocaine -MPF 2% 2 ML VIAL ONE (11:42)
[2020-10-23] MEDS ORDERED: Naloxone 0.4 MG/ML INJ IVP PRN ×3 (11:42→13:09)
[2020-10-23] MEDS ORDERED: *HR* FentaNYL (PF) 100 MCG/2 ML VIAL ONE (11:46)
[2020-10-23] MEDS ORDERED: EPHEDrine 50 MG/ML VIAL ONE (12:18)
[2020-10-23] MEDS ORDERED: Acetaminophen 325 MG TABLET PO PRN (13:09)
[2020-10-23] MEDS ORDERED: Ondansetron 4 MG/2 ML VIAL IVP PRN (13:09)
[2020-10-23] MEDS ORDERED: *HR* OxyCODONE Immed Rel 5 MG TABLET PO PRN (13:09)
[2020-10-23] MEDS ORDERED: *HR* HYDROcodone/Acet 5/325 mg TABLET PO PRN (13:09)
[2020-10-23] MEDS ORDERED: 0.9 % Sodium Chloride 1,000 ML IVC SCH (13:09)
[2020-10-24] MEDS: *HR* Heparin 5,000 UNIT/ML VIAL SQ SCH ×2 (05:33→17:03)
[2020-10-24 05:57] LABS: Hematocrit 31.8 % (37.5-50.1); Hemoglobin 10.3 g/dL (12.9-16.9); Mean Corpuscular HGB Conc 32.4 g/dL (31.6-35.5); Mean Corpuscular Hemoglobin 30.9 pg (28.0-33.3); Mean Corpuscular Volume 95.5 fL (83.0-100.0); Mean Platelet Volume 9.4 fL (9.4-12.4); Platelet Count 446 K/mcL (140-400); Red Blood Count 3.33 M/mcL (4.19-5.50); Red Cell Distribution Width 14.1 % (11.5-14.5); White Blood Count 10.3 K/mcL (4.3-11.1)
[2020-10-24 06:21] LABS: Calcium 8.8 mg/dL (8.6-10.3); Magnesium 1.8 mg/dL (1.6-2.6); Phosphorous 2.9 mg/dL (2.7-4.5)
[2020-10-24] MEDS: Finasteride 5 MG TABLET PO SCH (09:36)
[2020-10-24] MEDS: Lactobacillus 1 EACH CAP.SPRINK PO SCH ×2 (09:36→21:41)
[2020-10-24] MEDS ORDERED: levoFLOXacin 750 MG/150 ML 750 MG/150 ML BAG IVPB SCH (21:00)
[2020-10-25 03:32] LABS: Hematocrit 30.8 % (37.5-50.1); Hemoglobin 10.2 g/dL (12.9-16.9); Mean Corpuscular HGB Conc 33.1 g/dL (31.6-35.5); Mean Corpuscular Hemoglobin 31.1 pg (28.0-33.3); Mean Corpuscular Volume 93.9 fL (83.0-100.0); Mean Platelet Volume 9.8 fL (9.4-12.4); Platelet Count 505 K/mcL (140-400); Red Blood Count 3.28 M/mcL (4.19-5.50); Red Cell Distribution Width 14.1 % (11.5-14.5); White Blood Count 9.8 K/mcL (4.3-11.1)
[2020-10-25 03:51] LABS: Phosphorous 3.6 mg/dL (2.7-4.5)
[2020-10-25] MEDS: *HR* Heparin 5,000 UNIT/ML VIAL SQ SCH ×2 (06:10→16:46)
[2020-10-25] MEDS: Lactobacillus 1 EACH CAP.SPRINK PO SCH ×2 (08:09→21:27)
[2020-10-25] MEDS: Finasteride 5 MG TABLET PO SCH (08:10)
[2020-10-26 01:02] LABS: Hemoglobin 10.2 g/dL (12.9-16.9); Mean Corpuscular Hemoglobin 31.5 pg (28.0-33.3); Mean Corpuscular Volume 92.6 fL (83.0-100.0); Mean Platelet Volume 9.5 fL (9.4-12.4); Platelet Count 504 K/mcL (140-400); Red Blood Count 3.24 M/mcL (4.19-5.50); Red Cell Distribution Width 13.8 % (11.5-14.5); White Blood Count 9.6 K/mcL (4.3-11.1)
[2020-10-26 01:23] LABS: Calcium 9.3 mg/dL (8.6-10.3); Magnesium 1.9 mg/dL (1.6-2.6); Phosphorous 3.1 mg/dL (2.7-4.5); Potassium 4.1 mEq/L (3.5-5.1)
[2020-10-26] MEDS: *HR* Heparin 5,000 UNIT/ML VIAL SQ SCH (05:32)
[2020-10-26 07:50] VITALS: TEMP 97.8
[2020-10-26] MEDS: Lactobacillus 1 EACH CAP.SPRINK PO SCH (09:59)
[2020-10-26] MEDS: Finasteride 5 MG TABLET PO SCH (09:59)
[2020-10-26 11:51] VITALS: BP 124/81; PULSE 71; O2SAT 100
== END 2020-10-26 16:30 | disposition home health service (06) | DRG 854 ==
LOC: EMEROOARM 14:35 → 2ANU 14:35 → SUATTDRO 20:37 → 2ANU 21:20
PROVIDERS: ADMIT Family Medicine; ATTEND Internal Medicine